=== PATIENT | female | born 1965 | race Caucasian/White ===

== ENCOUNTER 2018-09-12 14:29 | Inpatient (IN) | payer OTHER ==
[~2018-09-12] VITALS: Ht 152.4 cm; Wt 98.0 kg
[2018-09-12 14:40] VITALS: BP 165/81
--- NOTE | 2018-09-12 14:40 | NUR ---
PATIENT AMBULATED TO ER BED 2.
[2018-09-12] MEDS ORDERED: ACETAMINOPHEN EXTRA STRENGTH 500 MG TAB PO ONE (14:45)
--- NOTE | 2018-09-12 14:45 | NUR ---
53 Y FEMALE BIB FAMILY C/O VOMITING X1 DAY YESTERDAY. REPORTS WEAKNESS AND UNABLE TO EAT. STATES SHE HAS NOT TAKEN HER DIABETES MEDICATIONS IN THE PAST 2 DAYS. TEMP 109 ORALLY. TACHY AT 109. AA0X4. NEURO INTACT. PATIENT STATES SHE DID NOT SUFFER ANY DEFICITS FROM PREVIOUS STROKE. BOWEL SOUNDS ACTIVE IN ALL 4 QUADRANTS. ABDOMEN SOFT AND ROUND. BED IS DOWN, LOCKED, BED RAIL X 1, ERMD TO SEE PT. PMH---DM (ACCU CHECK 497), STROKE 1 YEAR AGO, HTN NKA
[2018-09-12] MEDS ORDERED: BIOT10002 PO (14:55)
[2018-09-12] MEDS ORDERED: FURO-570 PO (14:55)
[2018-09-12] MEDS ORDERED: METO25TA PO (14:55)
[2018-09-12] MEDS ORDERED: MULT15LI1 PO (14:55)
[2018-09-12] MEDS ORDERED: LISI-420 PO (14:55)
[2018-09-12] MEDS ORDERED: ASPI-1718 PO (14:55)
[2018-09-12] MEDS ORDERED: AMLO10TA PO (14:55)
[2018-09-12] MEDS ORDERED: CLON0.2T43 PO (14:55)
[2018-09-12] MEDS ORDERED: LIP80 PO (14:55)
--- NOTE | 2018-09-12 15:00 | NUR ---
DR FLEMING AT BEDSIDE
[2018-09-12] MEDS ORDERED: NACL 0.9% 1,000 ML IV ONE ×3 (15:04→16:00)
[2018-09-12] MEDS ORDERED: KETOROLAC 30 MG/ML VIAL IVP ONE (15:05)
[2018-09-12] MEDS ORDERED: ONDANSETRON 4 MG/2 ML VIAL IVP ONE (15:05)
--- NOTE | 2018-09-12 15:14 | NUR ---
REY EMT AT BEDSIDE FOR EKG
[2018-09-12 15:21] LABS: HEMATOCRIT 31.9 % (36-48); HEMOGLOBIN 10.8 g/dL (12.0-16.0); MEAN CORPUSCULAR HEMOGLOBIN 28 pg (27-31); MEAN CORPUSCULAR HGB CONC 34 g/dL (33-37); MEAN CORPUSCULAR VOLUME 82.5 fL (80-94); PLATELET COUNT (AUTO) 239 K/uL (140-450); RED BLOOD CELL COUNT(AUTO) 3.86 MIL/uL (4.20-5.40); RED CELL DISTRIBUTION WIDTH 12.3 % (11.6-13.7)
[2018-09-12 15:35] LABS: LYMPHOCYTES % (MANUAL) 5 % (20-46); MONOCYTES % (MANUAL) 4 % (5-12); WHITE BLOOD COUNT (AUTO) 25.6 K/uL (4.8-10.8)
[2018-09-12] MEDS ORDERED: PIPERACILLIN/TAZOBACTAM 3.375 GM in DEXTROSE 5% 50 ML IV ONE (15:40)
[2018-09-12 15:44] LABS: ALBUMIN 2.2 g/dL (3.4-5.0); ANION GAP 15.3 (8-16); CREATININE 1.6 mg/dL (0.6-1.3); POTASSIUM 3.3 mmol/L (3.5-5.1); TOTAL BILIRUBIN 0.7 mg/dL (0.0-1.0)
[2018-09-12 15:48] LABS: PROTHROMBIN TIME 10.5 secs (10.8-13.4)
[2018-09-12] MEDS ORDERED: PIPERACILLIN/TAZOBACTAM 3.375 GM VIAL IV ONE (15:56)
[2018-09-12 16:13] LABS: APPEARANCE,URINE HAZY (CLEAR); BILIRUBIN,URINE NEGATIVE (NEGATIVE); BLOOD, URINE 2+ (NEGATIVE); COLOR,URINE YELLOW (YELLOW); LEUKOCYTE ESTERASE ,URINE NEGATIVE (NEGATIVE); NITRITE, URINE NEGATIVE (NEGATIVE); UGLUCOSE 3+ (NEGATIVE)
--- NOTE | 2018-09-12 16:21 | NUR ---
VSS AT THIS TIME. PT AA0X4.
[2018-09-12 16:23] LABS: RBC,URINE 11-20 (MOD) /HPF (0-5); WBC,URINE 60-80 /HPF (0-5)
--- NOTE | 2018-09-12 17:00 | NUR ---
PENDING ADMIT AT THIS TIME
[2018-09-12] MEDS ORDERED: INSULIN REGULAR, HUMAN 100 UNIT/ML VIAL IVP ONE (17:15)
--- NOTE | 2018-09-12 17:39 | NUR ---
VSS AT THIS TIME. COMPLETED BY REY WHEATLEY
--- NOTE | 2018-09-12 17:50 | NUR ---
PT EATING DINNER UPRIGHT IN BED. TOLERATING FOOD AT THIS TIME
--- NOTE | 2018-09-12 18:55 | NUR ---
ACCU CHECK 332
--- NOTE | 2018-09-12 19:18 | NUR ---
Patient will be admitted to care of [place]. Admited to TELE. Will go to room 125A. Belongings list completed. Report to JUNE RONALDO.
--- NOTE | 2018-09-12 19:18 | NUR ---
RECIEVED PT FROM ER NURSE. PT AWAKE, ALERT AND ORIENTED X 4. ABLE TO VERBALIZE NEEDS. PT ON ROOM AIR, BREATHING EQUAL AND UNLABORED. PT AMBULATED FROM GURNEY TO BED. PT LEFT AC 20 G INTACT. NO C/O DISCOMFORT. FAMILY AT BEDSIDE. SAFETY MEASURES IN PLACE. PT ORIENTED TO CALL LIGHT. CALL LIGHT WITHIN REACH.
[2018-09-12 20:00] VITALS: BP 146/65
[2018-09-12] MEDS ORDERED: ONDANSETRON 4 MG/2 ML VIAL IVP PRN (21:05)
[2018-09-12 21:55] LABS: ANION GAP 14.4 (8-16); CARBON DIOXIDE 25.3 mmol/L (21-32); CREATININE 1.8 mg/dL (0.6-1.3); POTASSIUM 3.7 mmol/L (3.5-5.1)
[2018-09-12] MEDS: ACETAMINOPHEN 325 MG TAB PO PRN (22:05)
[2018-09-12] MEDS: NACL 0.45% 1,000 ML IV SCH (22:05)
--- NOTE | 2018-09-12 22:05 | NUR ---
TYLENOL GIVEN FOR 3/10 HEADACHE.
[2018-09-13] MEDS ORDERED: PIPERACILLIN/TAZOBACTAM 2.25 GM VIAL IV ONE ×2 (00:08→05:37)
[2018-09-13 00:09] VITALS: BP_SYST 140; BP_SYST 141; BP_DIAS 62; BP_DIAS 71
[2018-09-13] MEDS: PIPER/TAZO 2.25GM/D5W PREMIX 50 ML IV SCH ×5 (00:09→23:26)
--- NOTE | 2018-09-13 00:09 | NUR ---
TEMPERATURE 100.3 AT THIS TIME. PT GIVEN ICE PACK COOLING MEASURE AND REMOVAL OF BLANKET.
[2018-09-13] MEDS: INSULIN LISPRO SLIDING SCALE 100 UNITS/ML VIAL SUBQ PRN ×5 (00:24→20:29)
--- NOTE | 2018-09-13 00:24 | NUR ---
PT ASKED FOR BLOOD GLUCOSE TO BE TAKEN. BLOOD GLUCOSE LEVEL 347, ADMINISTERED INSULIN PER SLIDING SCALE AT THIS TIME.
--- NOTE | 2018-09-13 02:00 | NUR ---
ROUNDED ON PT. PT SLEEPING, BREATHING EQUAL AND UNLABORED. CALL LIGHT WITHIN REACH.
[2018-09-13 04:40] VITALS: BP 185/76
[2018-09-13] MEDS: ACETAMINOPHEN 325 MG TAB PO PRN ×2 (04:45→15:58)
--- NOTE | 2018-09-13 04:45 | NUR ---
GAVE TYLENOL FOR FEVER OF 102. APPLIED ICE PACKS. WILL REASSESS IN ONE HOUR.
--- NOTE | 2018-09-13 04:54 | NUR ---
CALLED DOCTOR BUSINESS BANKING MANAGER FOR PT BP 185/76 AND PULSE 121. ORDERS TO CONTINUE AT HOME BP MEDICATIONS.
[2018-09-13] MEDS ORDERED: amLODIPine 5 MG TAB PO STA (05:18)
--- NOTE | 2018-09-13 05:45 | NUR ---
TEMPERATURE REASSESSMENT 102.7 AT THIS TIME. APPLIED NEW ICE PACKS TO ARMPITS. PULLED BLANKETS OFF PT.
[2018-09-13] MEDS: BLOOD GLUCOSE MONITORING 1 DEV DEV FS SCH ×4 (06:27→20:49)
--- NOTE | 2018-09-13 07:10 | NUR ---
ENDORSED TO AM NURSE FOR CONTINUITY OF CARE. PT IN STABLE CONDITION.
--- NOTE | 2018-09-13 07:11 | NUR ---
RECEIVED BEDSIDE REPORT FROM NIGHT NURSE. PT IS AOX4 RESTING IN BED BREATHING UNLABORED WITH NO DISTRESS OR COMPLAINTS. PT HAS +1 BLLE AROUND ANKLES INFORMED BY PT AND NIGHT NURSE THIS HAS PERSISTED SINCE ADMISSION AND IS TYPICAL FOR PATIENT. ALL SAFETY MEASURES IN PLACE AND CALL LIGHT WITHIN REACH. PT HAS A RIGHT HAND IV THAT IS INFUSING 1/2 NS AT 75 ML/HR ASYMPTOMATIC AND PATENT.
[2018-09-13 08:00] VITALS: BP 125/54
[2018-09-13] MEDS: METOPROLOL 25 MG TAB PO SCH ×2 (08:20→20:25)
[2018-09-13] MEDS: PANTOPRAZOLE 40 MG INJ VIAL IVP SCH (08:21)
[2018-09-13] MEDS: amLODIPine 5 MG TAB PO SCH (08:21)
--- NOTE | 2018-09-13 08:25 | NUR ---
ADMINISTERED MEDICATIONS, PT HAS NO DISTRESS RESTING IN BED BREATHING UNLABORED.
--- NOTE | 2018-09-13 08:58 | NUR ---
PATIENT HAS BEEN SCREENED AND CATEGORIZED MODERATE NUTRITION RISK. PATIENT WILL BE SEEN WITHIN 3-5 DAYS OF ADMISSION. 09/15/18-09/17/[address]
[2018-09-13] MEDS ORDERED: cloNIDine 0.1 MG TAB PO SCH (09:00)
[2018-09-13] MEDS: NACL 0.45% 1,000 ML IV SCH ×2 (10:01→23:25)
--- NOTE | 2018-09-13 10:01 | NUR ---
REASSESSED BLOOD PRESSURE AND FOUND TO BE 92/50, NOTIFIED DR MARTINES WHO WAS WALKING BY PT ROOM AT THE TIME AND HE INFORMED ME TO NOT DO ANYTHING ABOUT IT AND THAT WAS A NORMAL BLOOD PRESSURE. PT HAS NO DISTRESS OR REQUESTS AT THIS TIME.
--- NOTE | 2018-09-13 10:55 | NUR ---
WAS NOTIFIED BY LAB OF [facility] NEGATIVE RODS IN BLOOD CULTURE 1054, NOTIFIED DR MARTINES AT 1055 NO FURTHER ORDERS
--- NOTE | 2018-09-13 11:29 | NUR ---
ADMINISTERED MEDICATION PER MD ORDER AND INSULIN SLIDING SCALE, PT SLEEPING IN BED AROUSABLE TO NAME AND JUST STATING SHE FEELS FINE BUT IS TIRED. NO DISTRESS.
[2018-09-13 12:00] VITALS: BP 116/61
--- NOTE | 2018-09-13 13:13 | NUR ---
PT SLEEPING IN BED BREATHING UNLABORED.
--- NOTE | 2018-09-13 14:00 | NUR ---
PT SLEEPING IN BED BREATHING UNLABORED.
--- NOTE | 2018-09-13 14:20 | NUR ---
PT HAS TWO FEMALE VISITORS AT BEDSIDE SITTING UP TALKING WITH NO DISTRESSED BREATHING OR REPORTED PAIN. PT AND VISITORS DENY ANY REQUESTS FOR ANYTHING.
[2018-09-13 16:00] VITALS: BP 143/95
--- NOTE | 2018-09-13 16:04 | NUR ---
ADMINISTERED TYLENOL PER PT REQUEST FOR HEADACHE AND BROUGHT HER ICE WATER PER HER REQUEST. PT HAS NO OTHER REQUESTS AND IS RESTING BREATHING UNLABORED WITH NO OTHER SIGNS OF DISTRESS.
--- NOTE | 2018-09-13 17:09 | NUR ---
ADMINISTERED 4 UNITS HUMALOG FOR GLUCOSE OF 234. PATIENT TOLERATED WELL. ASSISTED PATIENT TO BATHROOM, RETURNED PATIENT TO BED. NO SIGNS OF DISTRESS OR SOB ON RA.
--- NOTE | 2018-09-13 17:20 | NUR ---
contacted pharmacy and informed them that the bag of zosyn administered at 1200 is the bag labeled for 0000 and that the 1200 bag is still in the fridge in its place.
--- NOTE | 2018-09-13 17:25 | NUR ---
administered medication per order. pt without distress.
--- NOTE | 2018-09-13 18:15 | NUR ---
REQUESTED TOMATO SOUP AT [facility] PER PT REQUEST. PT HAS NO OTHER REQUESTS AND IS RESTING IN BED BREATHING UNLABORED DENYING PAIN
--- NOTE | 2018-09-13 19:05 | NUR ---
Received endorsement from AM shift RN; patient A/Ox4, able to make needs known, Luxembourgish speaking, ambulatory. Introduced self, updated board. No SOB or distress noted, on room air. IV site on right hand, 20 gauge, intact with IVF running at 75mL/hr. Skin intact. Bed in the lowest position, call light within reach. Initial assessment done. Will continue to monitor. Addendum: 09/14/18 at 0014 by Mirza De La Rosa RN Bilateral lower extremity edema also noted.
[2018-09-13 20:00] VITALS: BP 123/53
--- NOTE | 2018-09-13 20:45 | NUR ---
Vitals taken, due meds given, tolerated well.
--- NOTE | 2018-09-13 22:30 | NUR ---
Rounds done; no distress noted.
[2018-09-13] MEDS ORDERED: DOCUSATE SODIUM 100 MG GELCAP PO PRN (23:15)
[2018-09-14] VITALS: BP 122/57
--- NOTE | 2018-09-14 00:11 | NUR ---
Vitals taken; no distress noted. Patient sleeping on right lateral side, visible chest rise and fall noted. Addendum: 09/14/18 at 0031 by Mirza De La Rosa RN Patient noted with 102 degree oral temperature; administered PRN Tylenol for fever. Will monitor closely.
[2018-09-14] MEDS: ACETAMINOPHEN 325 MG TAB PO PRN ×2 (00:32→20:45)
--- NOTE | 2018-09-14 00:40 | NUR ---
Ice pack applied to forehead to reduce fever. Will continue to monitor.
--- NOTE | 2018-09-14 01:30 | NUR ---
Re-checked temperature; oral temp at 101.50 degrees. Additional cooling measure put in place; turned on AC, removed blankets, placed additional ice packs and administered tepid sponge bath. Will continue to monitor. Addendum: 09/14/18 at 0138 by Mirza De La Rosa RN Advised patient to increase oral fluid intake.
--- NOTE | 2018-09-14 02:11 | NUR ---
Re-checked temperature; oral temperature 98.1; cooling measures effective. Will continue to monitor.
--- NOTE | 2018-09-14 03:00 | NUR ---
Checks made; no distress noted.
[2018-09-14 04:00] VITALS: BP 145/66
--- NOTE | 2018-09-14 04:15 | NUR ---
Vitals taken, no distress noted. Oral temperature 98.3.
[2018-09-14] MEDS: PIPER/TAZO 2.25GM/D5W PREMIX 50 ML IV SCH ×4 (05:14→23:28)
[2018-09-14] MEDS: BLOOD GLUCOSE MONITORING 1 DEV DEV FS SCH ×4 (06:07→21:00)
[2018-09-14 06:44] LABS: ALBUMIN 1.6 g/dL (3.4-5.0); ANION GAP 13.9 (8-16); CREATININE 2.2 mg/dL (0.6-1.3); TOTAL BILIRUBIN 0.7 mg/dL (0.0-1.0)
[2018-09-14 06:47] LABS: BASOPHILS % (AUTO) 0.2 % (0.0-2.0); EOSINOPHILS # (AUTO) 0.1 K/uL (0-0.4); EOSINOPHILS % (AUTO) 0.5 % (0.0-4.0); HEMATOCRIT 25.2 % (36-48); HEMOGLOBIN 8.4 g/dL (12.0-16.0); LYMPHOCYTES # (AUTO) 1.6 K/uL (2.5-16.5); LYMPHOCYTES % (AUTO) 11.7 % (20.5-51.1); MEAN CORPUSCULAR HEMOGLOBIN 28 pg (27-31); MEAN CORPUSCULAR HGB CONC 34 g/dL (33-37); MEAN CORPUSCULAR VOLUME 82.7 fL (80-94); MONOCYTES # (AUTO) 0.8 K/uL (0.8-1.0); MONOCYTES % (AUTO) 5.8 % (1.7-9.3); NEUTROPHILS # (AUTO) 11.2 K/uL (1.8-7.7); NEUTROPHILS % (AUTO) 81.8 % (42.2-75.2); PLATELET COUNT (AUTO) 154 K/uL (140-450); RED BLOOD CELL COUNT(AUTO) 3.04 MIL/uL (4.20-5.40); RED CELL DISTRIBUTION WIDTH 12.4 % (11.6-13.7); WHITE BLOOD COUNT (AUTO) 13.8 K/uL (4.8-10.8)
--- NOTE | 2018-09-14 07:05 | NUR ---
Endorsed patient to AM shift RN for continuity of care; patient in stable condition.
--- NOTE | 2018-09-14 07:10 | NUR ---
RECEIVED PT FROM DUCT LAYER NURSE, JACKI, PT IS AWAKE AND LYING ON THE BED WITH IV LINE ON THE RT HAND G. 20 WITH 1/2 NS AT 75ML/HR INFUSING, INTACT, AOX4, RESPIRATION IS EVEN, DENIES PAIN, NO SIGN OF DISTRESS NOTED, AND WILL CONTINUE TO MONITOR PT.
[2018-09-14 07:27] LABS: POTASSIUM 2.9 mmol/L (3.5-5.1)
--- NOTE | 2018-09-14 07:27 | NUR ---
RECEIVED A CALL FROM KENDY OF LAB AND REPORTED K IS 2.9, BUN IS 34, CREATININE IS 2.2.
--- NOTE | 2018-09-14 07:30 | NUR ---
PAGED DR. MARTINES NOW.
--- NOTE | 2018-09-14 08:20 | NUR ---
SPOKE TO DR. MARTIN, AND REPORTED THE PT'S K LEVEL OF 1.9, BUN 34, CREATININE 2.2 AND MD MADE A TELEPHONE ORDER TO GIVE NS 20MEQ KCL, 40 MEQ ORAL POTASSIUM, INSERT CASTELLON CATHETER AND RENAL U/S BILATERAL, ORDERS READ BACK AND VERIFIED.
--- NOTE | 2018-09-14 08:25 | NUR ---
INFORMED PT THAT MD ORDERED FOR A CASTELLON CATHETER INSERTION AND PT REFUSED AND VERBALIZED THAT SHE WANTS TO GO TO THE BATHROOM AND WALK AND BE ABLE TO PEE, A URINAL HAT WAS PLACED IN THE TOILET BOWL TO MEASURE URINE OUTPUT.
[2018-09-14] MEDS ORDERED: POTASSIUM CHLORIDE 10 MEQ TABER PO SCH (09:00)
[2018-09-14] MEDS: amLODIPine 5 MG TAB PO SCH (09:08)
[2018-09-14] MEDS: METOPROLOL 25 MG TAB PO SCH ×2 (09:08→20:46)
[2018-09-14] MEDS: PANTOPRAZOLE 40 MG INJ VIAL IVP SCH (09:10)
[2018-09-14] MEDS: POTASSIUM CHL 20 MEQ/NACL 0.9% 1,000 ML IV SCH ×2 (09:18→16:57)
--- NOTE | 2018-09-14 10:23 | NUR ---
PATIENT HAS BEEN RE-SCREENED AND RE-CATEGORIZED HIGH NUTRITIONAL RISK. PT WILL BE SEEN WITHIN 1-2 DAYS FROM ADMISSION 09/14/[address]
[2018-09-14 12:00] VITALS: BP 131/60
[2018-09-14] MEDS: INSULIN LISPRO SLIDING SCALE 100 UNITS/ML VIAL SUBQ PRN ×3 (12:49→21:04)
[2018-09-14] MEDS ORDERED: DOCUSATE SODIUM 100 MG GELCAP PO PRN (12:52)
--- NOTE | 2018-09-14 13:34 | NUR ---
09/14/18 RD INITIAL ASSESSMENT COMPLETED PLEASE REFER TO NUTRITION ASSESSMENT UNDER CARE ACTIVITY FOR ESTIMATED NUTRITIONAL NEEDS. 1. RECOMMEND CCHO 60 GM BLAND DIET TOLERATED 2. ENCOURAGE INCREASING PO INTAKE 3. RECOMMEND ENSURE ENLIVE BID 4. RD PROVIDED HEART-HEALTHY CONSISTENT CARBOHYDRATE NUTRITION THERAPY 5. RD TO FOLLOW-UP 2-3 DAYS, HIGH RISK AYLNI OCHOA RD
[2018-09-14 16:00] VITALS: BP 153/72
--- NOTE | 2018-09-14 17:10 | NUR ---
PT WAS ASSISTED TO THE BATHROOM TO URINATE AND DRAINED 400ML.
--- NOTE | 2018-09-14 17:10 | NUR ---
PT WAS GIVEN IV ZOSYN NOW VIA PIGGYBACK.
--- NOTE | 2018-09-14 19:25 | NUR ---
ENDORSED PT TO RN SURGERY ICU NURSE FOR CONTINUITY OF CARE.
--- NOTE | 2018-09-14 19:26 | NUR ---
RECEIVED BEDSIDE REPORT BY CRIS BRIGHT. PT A/O X4. TO PERSON PLACE TIME AND EVENT. DISCUSSED PLAN OF CARE. VERBALIZED UNDERSTANDING. ABLE TO MAKE NEEDS KNOWN. NO SIGNS OF RESP DISTRESS. ROOM AIR. STANDARD PRECAUTIONS. AMBULATES WITH ASSIST. RIGHT SIDED WEAKNESS. BILATERAL LOWER LEG EDEMA +1. SKIN IS INTACT. RIGHT HAND 20G PATENT AND INTACT. BED IN LOWEST POSITION. CALL LIGHT WITHIN REACH. WILL CONTINUE TO MONITOR.
[2018-09-14 20:00] VITALS: BP 162/58
--- NOTE | 2018-09-14 20:00 | NUR ---
Received pt from emily rn pt is aaox4 ambulatory iv on rt hand infusing well on telemetry sr not distress noted initial assessment done
--- NOTE | 2018-09-14 21:30 | NUR ---
AFTER TYLENOL GIVEN FOR FEVER PT HAS N TEMP 98 AND PT V;OIDING WELL ON TELEMETRY SR
--- NOTE | 2018-09-14 22:00 | NUR ---
PT IS ASSISTED TO USE THE RESTROOM NOT DISTRESS NOTED, REMAIN STABLE ON TELEMETRY SR
[2018-09-15] VITALS: BP 148/69
--- NOTE | 2018-09-15 01:00 | NUR ---
PT ON CLOSE MONITORING STRICT I AND O DENIES ANY PAIN IV ON RT HAND INFUSING WELL
[2018-09-15] MEDS: POTASSIUM CHL 20 MEQ/NACL 0.9% 1,000 ML IV SCH ×3 (02:45→10:44)
[2018-09-15 04:00] VITALS: BP 114/78
--- NOTE | 2018-09-15 04:00 | NUR ---
SPONGE BATH GIVEN, LINEN CHANGED PT VOIDING WELL , ON TELEMETRY SR
[2018-09-15] MEDS: ACETAMINOPHEN 325 MG TAB PO PRN (04:21)
[2018-09-15] MEDS: PIPER/TAZO 2.25GM/D5W PREMIX 50 ML IV SCH ×2 (05:55→14:05)
--- NOTE | 2018-09-15 06:00 | NUR ---
BLOOD SUGAR TEST 245 COVERAGE WITH 4 UNITS HUMALOG SUBQ FOLLOW PROTOCOL
[2018-09-15] MEDS: BLOOD GLUCOSE MONITORING 1 DEV DEV FS SCH ×2 (06:03→11:48)
[2018-09-15] MEDS: INSULIN LISPRO SLIDING SCALE 100 UNITS/ML VIAL SUBQ PRN ×2 (06:07→12:19)
[2018-09-15 06:24] LABS: ALBUMIN 1.5 g/dL (3.4-5.0); ANION GAP 15.8 (8-16); CARBON DIOXIDE 20.6 mmol/L (21-32); CREATININE 1.9 mg/dL (0.6-1.3); POTASSIUM 3.4 mmol/L (3.5-5.1); TOTAL BILIRUBIN 0.7 mg/dL (0.0-1.0)
[2018-09-15 06:25] LABS: MAGNESIUM 1.5 mg/dL (1.8-2.4); PHOSPHORUS 2.6 mg/dL (2.5-4.9)
--- NOTE | 2018-09-15 06:49 | NUR ---
PT FEELS NAUSEAS AND MEDIC GIVEN ORDER PT WILL BE MONITORING, AND PT WILL BE ENDORSED TO DAY SHIFT NURSE FOR CONTINUE OF CARE
--- NOTE | 2018-09-15 07:20 | NUR ---
RECEIVED PT FROM DEPARTMENT DIRECTOR NURSEMARÍA, PT IS AWAKE AND LYING ON THE BED WITH IV LINE ON THE RT HAND G. 20 WITH NA 20MEQ KCL INFUSING AT 150 ML/HR, ON ROOM AIR, FALL PRECAUTION ENFORCED, DENIES PAIN AND NO SIGN OF DISTRESS NOTED. WILL MONITOR PT.
--- NOTE | 2018-09-15 07:49 | NUR ---
RECEIVED REPORT FROM EDITORIAL WRITER NURSE. PT IS STABLE THIS MORNING. PT IS CURRENTLY EATING BREAKFAST IN BED. VITAL SIGNS WERE STABLE, NO SIGNS OF RESPIRATORY DISTRESS. WILL CONTINUE TO MONITOR.
--- NOTE | 2018-09-15 07:52 | NUR ---
SPOKE TO DR. MARTIN, COVERING FOR DR. MARTINES, AND REPORTED THE PT'S K LEVEL OF 3.4, SAID TO NOT GIVE ANYTHING BECAUSE ITS NOT TOO LOW, PT RECEIVED 40MEQ K-DUR AND HAS NS 20MEQ KCL INFUSING NOW.
[2018-09-15 07:56] VITALS: BP 146/79
[2018-09-15] MEDS: METOPROLOL 25 MG TAB PO SCH (08:13)
[2018-09-15] MEDS: amLODIPine 5 MG TAB PO SCH (08:13)
[2018-09-15] MEDS: PANTOPRAZOLE 40 MG INJ VIAL IVP SCH (08:14)
[2018-09-15 08:28] LABS: BASOPHILS % (AUTO) 0.4 % (0.0-2.0); EOSINOPHILS % (AUTO) 0.4 % (0.0-4.0); HEMATOCRIT 24.2 % (36-48); HEMOGLOBIN 8.2 g/dL (12.0-16.0); LYMPHOCYTES # (AUTO) 1.1 K/uL (2.5-16.5); LYMPHOCYTES % (AUTO) 10.1 % (20.5-51.1); MEAN CORPUSCULAR HEMOGLOBIN 28 pg (27-31); MEAN CORPUSCULAR HGB CONC 34 g/dL (33-37); MEAN CORPUSCULAR VOLUME 82.6 fL (80-94); MONOCYTES % (AUTO) 9.3 % (1.7-9.3); NEUTROPHILS % (AUTO) 79.8 % (42.2-75.2); PLATELET COUNT (AUTO) 165 K/uL (140-450); RED BLOOD CELL COUNT(AUTO) 2.92 MIL/uL (4.20-5.40); RED CELL DISTRIBUTION WIDTH 12.5 % (11.6-13.7); WHITE BLOOD COUNT (AUTO) 11.3 K/uL (4.8-10.8)
--- NOTE | 2018-09-15 10:44 | NUR ---
ASSISTED PT TO THE BATHROOM AND ASSISTED BACK TO ROOM, IVF BAG WAS CHANGED AND STARTED A NEW ONE. WILL MONITOR PT.
--- NOTE | 2018-09-15 11:48 | NUR ---
PT IS LYING ON THE BED, V/S TAKEN AND BP IS 139/69, PULSE IS 78, O2 SATURATION IS 96%, TEMP. IS 98.1, RESPIRATION IS EVEN AT 18/MIN, BLOOD GLUCOSE CHECK DONE AND IS 240. WILL GIVE INSULIN COVERAGE.
[2018-09-15 12:00] VITALS: BP 139/69
--- NOTE | 2018-09-15 12:15 | NUR ---
DR. MARTIN CAME TO PT'S ROOM AND SPOKE TO PT, MADE A VERBAL ORDER TO GIVE PT MG 400MG ORAL X 1 DOSE.. ORDER VERIFIED AND WILL CARRY OUT.
--- NOTE | 2018-09-15 12:19 | NUR ---
PT WAS GIVEN INSULIN 4 UNITS, IHN THE LEFT UA FOR A BLOOD GLUCOSE OF 240. WILL MONITOR PT.
[2018-09-15] MEDS ORDERED: MAGNESIUM OXIDE 400 MG TAB PO SCH (13:00)
[2018-09-15] MEDS ORDERED: MAGNESIUM CHLORIDE 64 MG TABEC PO SCH (13:30)
[2018-09-15] MEDS ORDERED: POTASSIUM CHLORIDE 10 MEQ TABER PO SCH (13:30)
--- NOTE | 2018-09-15 13:34 | NUR ---
CALLED PATIENT'S PCP OFFICE [phone] MADE F/U APPOINTMENT WITH DR REYES SEPTEMBER 29, 2018 AT 3:30 PM. EXPLAIN TO THE PATIENT AND APPOINTMENT REMINDER GIVEN. PT VERBALIZED UNDERSTANDING.
--- NOTE | 2018-09-15 13:50 | NUR ---
PT IS AWAKE AND LYING ON THE BED, ORAL MEDICATIONS WERE GIVEN AND PT TOLERATED IT.
--- NOTE | 2018-09-15 14:06 | NUR ---
IV ZOSYN GIVEN TO PT NOW.
--- NOTE | 2018-09-15 16:18 | NUR ---
PT WAS DISCHARGED AT APPROXIMATELY 1615. PT WAS STABLE UPON DISCHARGE AND VITAL SIGNS WERE ALL WNL. PT HAD DAUGHTER DRIVE HER HOME.
--- NOTE | 2018-09-15 16:18 | NUR ---
DISCHARGED PT TO HOME VIA WHEELCHAIR WITH DAUGHTER, IV LINE AND ARM BAND REMOVED, DISCHARGED TEACHING AND INSTRUCTIONS GIVEN AND PT VERBALIZED UNDERSTANDING. PT IS STABLE AT THIS TIME.
== END 2018-09-15 16:10 | disposition home or self-care (01) | DRG 720 ==
LOC: MED 14:29 → MMU 19:04 → MED 19:10
PROVIDERS: ADMIT Internal Medicine Pulmonary Disease; ATTEND Internal Medicine Pulmonary Disease
DX: A41.9 Sepsis, unspecified organism (principal); E43 Unspecified severe protein-calorie malnutrition; E11.22 Type 2 diabetes mellitus with diabetic chronic kidney disease; N17.9 Acute kidney failure, unspecified; A08.4 Viral intestinal infection, unspecified; N39.0 Urinary tract infection, site not specified; E66.01 Morbid (severe) obesity due to excess calories; Z68.41 Body mass index [BMI] 40.0-44.9, adult; B96.20 Unspecified Escherichia coli [E. coli] as the cause of diseases classified elsewhere; D64.9 Anemia, unspecified; E66.9 Obesity, unspecified; E78.5 Hyperlipidemia, unspecified; E87.1 Hypo-osmolality and hyponatremia; E87.6 Hypokalemia; E88.09 Other disorders of plasma-protein metabolism, not elsewhere classified; I12.9 Hypertensive chronic kidney disease with stage 1 through stage 4 chronic kidney disease, or unspecified chronic kidney disease; N18.3 Chronic kidney disease, stage 3 (moderate); Z86.73 Personal history of transient ischemic attack (TIA), and cerebral infarction without residual deficits; Z90.710 Acquired absence of both cervix and uterus
CPT/HCPCS: 36415; 71045; 76770; 80048; 80053; 81001; 82948; 83605; 83690; 83735; 84100; 84484; 85025; 85610; 87040; 87081; 87086; 87186; 93005; 96361; 96365; 96375; 99291; C9113; J1815; J1885; J2405; J2543; J7030; J7060; Q0092

== ENCOUNTER 2018-09-26 05:49 | Emergency (ER) | payer OTHER ==
[~2018-09-26] VITALS: Ht 152.4 cm; Wt 83.9 kg
[~2018-09-26 05:49] MED LIST: AMLO10TA PO; ASPI-1718 PO; BIOT10002 PO; CLON0.2T43 PO; FURO-570 PO; LIP80 PO; LISI-420 PO; METO25TA PO; MULT15LI1 PO
[2018-09-26 05:50] VITALS: BP 141/84
--- NOTE | 2018-09-26 05:57 | NUR ---
PT AMBULATED TO ER BED 8
--- NOTE | 2018-09-26 06:00 | NUR ---
PT BIB DAUGHTER PRESENTED TO ED, C/O EPIGASTRIC/UPPER ABD BURNING PAIN 8/10 WITH N/V FOR 4HRS. TOOK ZOFRAN WITH LITTLE RELIEF BUT FELT NAUSEATED AFTER 2HRS. PT WAS RECENTLY ADMITTED 1 WEEKS AGO FOR PYELONEPHRITIS AND RECEIVED ATB THERAPY AND FINISHED DURATION OF ATB AT HOME. C/O PAIN UPON PALPATION ON THE EPIGASTRIC REGION, ABDOMEN ROUND SOFT TO TOUCH. PT AAOX4, RR EVEN UNLABORED, NO DISTRESS AT THIS TIME. DR. DARDEN AT BEDSIDE ASSESSING PATIENT. WILL CONTINUE TO MONITOR CLOSELY. HX HTN, DM, , HYSTERECTOMY, HERNIA REPAIR
--- NOTE | 2018-09-26 06:00 | NUR ---
DR. DARDEN BEDSIDE EVALUATING PT
[2018-09-26] MEDS ORDERED: FAMOTIDINE 20 MG/2 ML VIAL IVP ONE (06:10)
[2018-09-26] MEDS ORDERED: NACL 0.9% 1,000 ML IV ONE (06:10)
[2018-09-26] MEDS ORDERED: ONDANSETRON 4 MG/2 ML VIAL IVP ONE (06:10)
[2018-09-26] MEDS ORDERED: MORPHINE SULFATE 4 MG/ML SYR IVP ONE (06:10)
[2018-09-26 06:35] LABS: BASOPHILS # (AUTO) 0.1 K/uL (0.00-0.22); BASOPHILS % (AUTO) 0.6 % (0.0-2.0); EOSINOPHILS # (AUTO) 0.1 K/uL (0-0.4); EOSINOPHILS % (AUTO) 0.5 % (0.0-4.0); HEMATOCRIT 25.2 % (36-48); HEMOGLOBIN 8.7 g/dL (12.0-16.0); LYMPHOCYTES # (AUTO) 1.7 K/uL (2.5-16.5); LYMPHOCYTES % (AUTO) 15.1 % (20.5-51.1); MEAN CORPUSCULAR HEMOGLOBIN 28 pg (27-31); MEAN CORPUSCULAR HGB CONC 35 g/dL (33-37); MONOCYTES # (AUTO) 0.6 K/uL (0.8-1.0); MONOCYTES % (AUTO) 4.9 % (1.7-9.3); NEUTROPHILS % (AUTO) 78.9 % (42.2-75.2); PLATELET COUNT (AUTO) 405 K/uL (140-450); RED BLOOD CELL COUNT(AUTO) 3.11 MIL/uL (4.20-5.40); WHITE BLOOD COUNT (AUTO) 11.4 K/uL (4.8-10.8)
[2018-09-26 06:36] LABS: APPEARANCE,URINE CLEAR (CLEAR); BILIRUBIN,URINE NEGATIVE (NEGATIVE); BLOOD, URINE 2+ (NEGATIVE); COLOR,URINE YELLOW (YELLOW); LEUKOCYTE ESTERASE ,URINE NEGATIVE (NEGATIVE); NITRITE, URINE NEGATIVE (NEGATIVE); PH,URINE 7.5 (5.0-9.0); UGLUCOSE 3+ (NEGATIVE)
[2018-09-26 07:02] LABS: ALBUMIN 2.3 g/dL (3.4-5.0); CARBON DIOXIDE 34.3 mmol/L (21-32); CREATININE 1.7 mg/dL (0.6-1.3); POTASSIUM 3.3 mmol/L (3.5-5.1)
--- NOTE | 2018-09-26 07:08 | NUR ---
REPORT GIVEN TO RONALDO BOWIE. PT IN STABLE CONDITION AT THIS TIME.
[2018-09-26 08:07] LABS: RBC,URINE 11-20 (MOD) /HPF (0-5); WBC,URINE 0-5 /HPF (0-5)
--- NOTE | 2018-09-26 08:54 | NUR ---
PATIENT TAKEN FOR CT SCAN VIA WHEELCHAIR AT THIS TIME.
--- NOTE | 2018-09-26 09:05 | NUR ---
PT RETURNED FROM CT SCAN VIA WHEELCHAIR.
--- NOTE | 2018-09-26 09:11 | NUR ---
ASSUMED CARE OF PT AT THIS TIME, PT AWAKE AND LAYING IN BED, COMFORTABLE, NO NEW NEEDS AT THIS TIME.
--- NOTE | 2018-09-26 10:54 | NUR ---
Patient discharged with v/s stable. Written and verbal after care instructions given and explained. Patient alert, oriented and verbalized understanding of instructions. Ambulatory with steady gait. All questions addressed prior to discharge. ID band removed. Patient advised to follow up with PMD. Rx of [place] given. Patient educated on indication of medication including possible reaction and side effects. Opportunity to ask questions provided and answered.
[2018-09-26 11:01] VITALS: BP 196/85
== END 2018-09-26 10:54 | disposition home or self-care (01) ==
LOC: MED 05:49
DX: R10.10 Upper abdominal pain, unspecified (principal); R11.2 Nausea with vomiting, unspecified; E11.9 Type 2 diabetes mellitus without complications; I10 Essential (primary) hypertension; Z86.73 Personal history of transient ischemic attack (TIA), and cerebral infarction without residual deficits; Z90.710 Acquired absence of both cervix and uterus; Z98.890 Other specified postprocedural states; Z79.82 Long term (current) use of aspirin
CPT/HCPCS: 36415; 74176; 76705; 80053; 81001; 82948; 83690; 85025; 87040; 96361; 96374; 96375; 99284; J2270; J2405; J3490; J7030; Q0092

== ENCOUNTER 2019-04-27 11:32 | Emergency (ER) | payer OTHER ==
[~2019-04-27] VITALS: Ht 152.4 cm; Wt 83.5 kg
[~2019-04-27 11:32] MED LIST changes: -ASPI-1718 PO; +ASPI-1822 PO
[2019-04-27 11:57] VITALS: BP 228/92
--- NOTE | 2019-04-27 12:15 | NUR ---
RECEVIED A 54/F FROM TRIAGE FOR UTI S/S. PT REPORTS GROSS HEMATURIA STARTING THIS MORNING WITH URINARY URGENCY AND FREQUENCY. PT DENIES PAIN OR ANY OTHER SYMPTOMS. IN BED FOR MSE.
--- NOTE | 2019-04-27 12:55 | NUR ---
MEDICATED ORDERED. TOLERATED WELL.
[2019-04-27] MEDS ORDERED: cefTRIAXone 1,000 MG VIAL ONE (12:56)
[2019-04-27 12:58] LABS: APPEARANCE,URINE CLOUDY (CLEAR); BILIRUBIN,URINE NEGATIVE (NEGATIVE); BLOOD, URINE 3+ (NEGATIVE); COLOR,URINE RED (YELLOW); LEUKOCYTE ESTERASE ,URINE 2+ (NEGATIVE); NITRITE, URINE POSITIVE (NEGATIVE); PH,URINE 7.5 (5.0-9.0); UGLUCOSE 3+ (NEGATIVE)
[2019-04-27] MEDS: ONDANSETRON 4 MG/2 ML VIAL IVP ONE (12:58)
[2019-04-27] MEDS: NACL 0.9% 1,000 ML IV SCH (12:58)
[2019-04-27] MEDS: KETOROLAC 15 MG/ML VIAL IVP ONE (12:58)
--- NOTE | 2019-04-27 13:05 | NUR ---
PT REPORTS NO PAIN AFTER MEDICATIONA ADMIN.
[2019-04-27 13:15] LABS: RBC,URINE TOO NUMEROUS TO COUN /HPF (0-5)
[2019-04-27 13:40] LABS: BASOPHILS % (AUTO) 0.3 % (0.0-2.0); EOSINOPHILS % (AUTO) 0.3 % (0.0-4.0); HEMOGLOBIN 11.5 g/dL (12.0-16.0); LYMPHOCYTES # (AUTO) 1.6 K/uL (2.5-16.5); LYMPHOCYTES % (AUTO) 12.5 % (20.5-51.1); MEAN CORPUSCULAR HEMOGLOBIN 27 pg (27-31); MEAN CORPUSCULAR HGB CONC 34 g/dL (33-37); MEAN CORPUSCULAR VOLUME 81.1 fL (80-94); MONOCYTES # (AUTO) 0.4 K/uL (0.8-1.0); NEUTROPHILS % (AUTO) 83.9 % (42.2-75.2); PLATELET COUNT (AUTO) 310 K/uL (140-450); RED BLOOD CELL COUNT(AUTO) 4.19 MIL/uL (4.20-5.40); RED CELL DISTRIBUTION WIDTH 12.8 % (11.6-13.7); WHITE BLOOD COUNT (AUTO) 13.1 K/uL (4.8-10.8)
[2019-04-27 13:43] LABS: ALBUMIN 2.7 g/dL (3.4-5.0); ANION GAP 11.4 (8-16); CARBON DIOXIDE 31.9 mmol/L (21-32); CREATININE 1.4 mg/dL (0.6-1.3); POTASSIUM 3.3 mmol/L (3.5-5.1); TOTAL BILIRUBIN 0.4 mg/dL (0.0-1.0)
--- NOTE | 2019-04-27 13:55 | NUR ---
DR LAM MADE AWARE OF GLUCOSE OF 404. ORDER FOR 1L NS BOLUS RECEIVED.
[2019-04-27] MEDS: MAGNESIUM OXIDE 400 MG TAB PO ONE (14:19)
[2019-04-27] MEDS: POTASSIUM CHLORIDE 10 MEQ TABER PO ONE (14:19)
[2019-04-27] MEDS: NACL 0.9% 1,000 ML IV ONE (14:19)
[2019-04-27] MEDS ORDERED: INSULIN REGULAR, HUMAN 100 UNIT/ML VIAL SUBQ ONE (15:15)
--- NOTE | 2019-04-27 15:22 | NUR ---
BS 347 AFTER 1L BOLUS- WILL MEDICATE WITH 5U INSULIN PER MD ORDER.
[2019-04-27] MEDS: INSULIN REGULAR, HUMAN 100 UNIT/ML VIAL IVP ONE (15:35)
--- NOTE | 2019-04-27 16:30 | NUR ---
BS 276 AFTER 5U INSULIN. OKAY TO D/C PER DR LAM.
--- NOTE | 2019-04-27 16:38 | NUR ---
IV removed, catheter intact and site benign. Applied folded 4x4 gauze and tape to stop bleeding.
--- NOTE | 2019-04-27 16:40 | NUR ---
Patient discharged with v/s stable. Written and verbal after care instructions given and explained. Patient alert, oriented and verbalized understanding of instructions. Ambulatory with steady gait. All questions addressed prior to discharge. ID band removed. Patient advised to follow up with PMD. Rx of [place], CEPHALEXIN, ZOFRAN given. Patient educated on indication of medication including possible reaction and side effects. Opportunity to ask questions provided and answered.
[2019-04-27 16:42] VITALS: BP 183/74
== END 2019-04-27 16:43 | disposition home or self-care (01) ==
LOC: MED 11:32
DX: N12 Tubulo-interstitial nephritis, not specified as acute or chronic (principal); E11.65 Type 2 diabetes mellitus with hyperglycemia; E11.22 Type 2 diabetes mellitus with diabetic chronic kidney disease; I12.9 Hypertensive chronic kidney disease with stage 1 through stage 4 chronic kidney disease, or unspecified chronic kidney disease; Z86.73 Personal history of transient ischemic attack (TIA), and cerebral infarction without residual deficits; Z90.710 Acquired absence of both cervix and uterus; Z98.890 Other specified postprocedural states; Z79.82 Long term (current) use of aspirin; Z79.899 Other long term (current) drug therapy
CPT/HCPCS: 36415; 80053; 81001; 81025; 83605; 85025; 87040; 96361; 96365; 96375; 99283; J0696; J1815; J1885; J2405; J7030

== ENCOUNTER 2019-07-10 05:37 | Inpatient (IN) | payer OTHER ==
[2019-07-10] VITALS (7 sets, daily range): BP systolic 136–237; BP diastolic 53–105
[~2019-07-10] VITALS: Ht 152.4 cm; Wt 80.3 kg
--- NOTE | 2019-07-10 05:47 | NUR ---
PT AMBULATED TO BED #2
[2019-07-10] MEDS ORDERED: hydrALAZINE 20 MG/ML VIAL IVP ONE (05:50)
[2019-07-10] MEDS ORDERED: ENALAPRILAT 2.5 MG/2 ML VIAL IVP ONE (05:50)
--- NOTE | 2019-07-10 05:50 | NUR ---
54 y/o female c/o high blood pressure, n,v x 1 1/2 days. pt states she hasnt been able to hold down anything and was unable to take her insulin or bp meds. pt denies any abd pain, abd is soft, round, nontender, active bs, +n,v. bp is 244/110 at triage. ermd aware. heart sound s1s2 present. radial pulses are bounding and rapid on bue. lung sounds clear all throughout. a&o x4. steady gait. denies any blurry vision. 3mm perrla brisk. arm strength equal bilat. speech is clear. nka. pmh: stroke (2years ago), htn, dm.
--- NOTE | 2019-07-10 06:04 | NUR ---
xr at bedside.
[2019-07-10 06:48] LABS: BASOPHILS # (AUTO) 0.1 K/uL (0.00-0.22); BASOPHILS % (AUTO) 0.8 % (0.0-2.0); EOSINOPHILS # (AUTO) 0.1 K/uL (0-0.4); EOSINOPHILS % (AUTO) 0.6 % (0.0-4.0); HEMATOCRIT 35.1 % (36-48); LYMPHOCYTES # (AUTO) 1.8 K/uL (2.5-16.5); LYMPHOCYTES % (AUTO) 20.3 % (20.5-51.1); MEAN CORPUSCULAR HEMOGLOBIN 28 pg (27-31); MEAN CORPUSCULAR HGB CONC 34 g/dL (33-37); MEAN CORPUSCULAR VOLUME 81.8 fL (80-94); MONOCYTES # (AUTO) 0.3 K/uL (0.8-1.0); MONOCYTES % (AUTO) 3.5 % (1.7-9.3); NEUTROPHILS # (AUTO) 6.6 K/uL (1.8-7.7); NEUTROPHILS % (AUTO) 74.8 % (42.2-75.2); PLATELET COUNT (AUTO) 286 K/uL (140-450); RED BLOOD CELL COUNT(AUTO) 4.29 MIL/uL (4.20-5.40); RED CELL DISTRIBUTION WIDTH 13.1 % (11.6-13.7); WHITE BLOOD COUNT (AUTO) 8.8 K/uL (4.8-10.8)
[2019-07-10] MEDS ORDERED: ONDANSETRON 4 MG/2 ML VIAL IVP ONE (06:50)
--- NOTE | 2019-07-10 07:10 | NUR ---
gave report to nathalie bal. transfer of care at this time.
--- NOTE | 2019-07-10 07:10 | NUR ---
RECEIVED REPORT FROM RONALDO MARTÍNEZ AND [facility]
--- NOTE | 2019-07-10 07:14 | NUR ---
PT AMBULATED TO RESTROOM. GAIT STEADY
[2019-07-10 07:17] LABS: ALBUMIN 2.2 g/dL (3.4-5.0); ANION GAP 13.8 (8-16); CARBON DIOXIDE 29.2 mmol/L (21-32); CREATININE 1.7 mg/dL (0.6-1.3); TOTAL BILIRUBIN 0.4 mg/dL (0.0-1.0)
[2019-07-10] MEDS ORDERED: ALUMINUM HYD/MAG/SIMETHICONE 30 ML UDC PO ONE (07:30)
[2019-07-10] MEDS ORDERED: ACETAMINOPHEN 325 MG TAB PO ONE (07:30)
[2019-07-10 07:39] LABS: CHOL/HDL RATIO 4.3 (1-4.5)
--- NOTE | 2019-07-10 07:43 | NUR ---
PT STILL VOMITING. GAVE MEDS.
--- NOTE | 2019-07-10 08:50 | NUR ---
PATIENT ARRIVED VIA GURNEY FROM ED. RECEIVED REPORT FROM RONALDO AN. PLANS OF CARE DISCUSSED. PATIENT ALERT AND ORIENTED X4. INTRODUCED SELF. IV INTACT AND PATENT TO RIGHT AC SALINE LOCK. ASSESSMENT TO FOLLOW. SAFETY MEASURES IN PLACE. CALL LIGHT WITHIN REACH.
--- NOTE | 2019-07-10 08:57 | NUR ---
Patient will be admitted to care of DR PETERSON. Admited to [facility]. Will go to room 106B. Belongings list completed. Report to RONALDO MARIE.
[2019-07-10] MEDS ORDERED: ONDANSETRON 4 MG/2 ML VIAL IVP PRN (09:35)
[2019-07-10] MEDS ORDERED: HYDROcodone/APAP 5/325 MG 1 TAB TAB PO PRN (09:35)
[2019-07-10] MEDS ORDERED: ACETAMINOPHEN 325 MG TAB PO PRN (09:35)
[2019-07-10] MEDS ORDERED: MORPHINE SULFATE 4 MG/ML SYR IVP PRN (09:35)
[2019-07-10] MEDS: hydrALAZINE 20 MG/ML VIAL IVP PRN ×2 (11:50→17:01)
--- NOTE | 2019-07-10 11:50 | NUR ---
DR. PETERSON AT BEDSIDE. PATIENT MEDICATED FOR ELEVATED BP AND N/V. WILL CONTINUE TO MONITOR.
[2019-07-10] MEDS ORDERED: PROMETHAZINE 25 MG/ML VIAL IVP PRN (12:05)
[2019-07-10] MEDS ORDERED: KCL 20 MEQ/WATER INJ PREMIX 100 ML IV SCH (12:15)
--- NOTE | 2019-07-10 13:30 | NUR ---
PATIENT OFF UNIT FOR VQ SCAN. PATIENT STABLE.
--- NOTE | 2019-07-10 14:00 | NUR ---
PATIENT IS RESTING QUIETLY IN BED. NO S/S OF DISTRESS NOTED. WILL CONTINUE TO MONITOR.
--- NOTE | 2019-07-10 16:55 | NUR ---
PATIENT RETURNED FROM VQ SCAN.
--- NOTE | 2019-07-10 17:00 | NUR ---
PT MEDICATED FOR ELEVATED BP. WILL MONITOR.
--- NOTE | 2019-07-10 18:45 | NUR ---
BP 144/57, HR 103. PATIENT SLEEPING.
--- NOTE | 2019-07-10 19:00 | NUR ---
REPORT GIVEN TO NIGHT NURSE FOR CONTINUITY OF CARE. PATIENT IN STABLE CONDITION.
--- NOTE | 2019-07-10 19:01 | NUR ---
RECD. RESTING IN BED, AWAKE, A/OX4. RESPIRATION EVEN AND UNLABORED. SALINE LOCK AT THE RIGHT AC G20, PATENT AND INTACT. ABLE TO AMBULATE BY HERSELF. BP - 149/56. NO NAUSEA NOTED. DINNER TRAY AT THE BEDSIDE TABLE STILL UNTOUCHED, OFFERED SANDWICH, AGREED. PLAN OF CARE FOR THE SHIFT DISCUSSED. VERBALIZED UNDERSTANDING. DENIES PAIN 0/10.
--- NOTE | 2019-07-10 20:00 | NUR ---
Patient's Plan of Care was discussed and reviewed with OUT OF TOWN COLLECTION CLERK: ABRAHAM BURGOS
[2019-07-10] MEDS: ATORVASTATIN 80 MG TAB PO SCH (20:34)
[2019-07-10] MEDS: METOPROLOL 25 MG TAB PO SCH (20:34)
[2019-07-10] MEDS: cloNIDine 0.1 MG TAB PO SCH (20:35)
--- NOTE | 2019-07-10 20:37 | NUR ---
DUE PO MEDICATION GIVEN, BP - 137/53, CHECKED AGAIN - 149/56. LOPRESSOR 25 MG. PO GIVEN. WILL CHECKED BP AGAIN AND GIVE CATAPRES IF BP IS HIGH. LIPITOR TAB ACCIDENTALLY DROPPED ON THE FLOOR, GOT ANOTHER FROM [facility]. SANDWICH GIVEN REQUESTED.
[2019-07-11] VITALS: BP 127/52
--- NOTE | 2019-07-11 | NUR ---
SLEEPING COMFORTABLY IN BED.
--- NOTE | 2019-07-11 01:15 | NUR ---
INFORMED DR. PETERSON RESULT OF THE VQ SCAN, UNDER MODIFIED PIOPED CRITERIA, THIS STUDY IS CONSISTENT WITH A LOW PROBABILITY FOR PE AND PATIENT WAS NOT GIVEN DUE PO MEDICATION AT 2100 ONLY LOPRESSOR 25 MG. BECAUSE BP IS 149/56, AT 0000 BP IS 127/52.
--- NOTE | 2019-07-11 03:30 | NUR ---
STILL SLEEPING COMFORTABLY IN BED.
[2019-07-11 04:00] VITALS: BP 158/57
[2019-07-11 05:24] LABS: BASOPHILS % (AUTO) 0.3 % (0.0-2.0); EOSINOPHILS # (AUTO) 0.1 K/uL (0-0.4); EOSINOPHILS % (AUTO) 0.6 % (0.0-4.0); HEMATOCRIT 27.2 % (36-48); HEMOGLOBIN 9.3 g/dL (12.0-16.0); LYMPHOCYTES # (AUTO) 2.1 K/uL (2.5-16.5); LYMPHOCYTES % (AUTO) 25.7 % (20.5-51.1); MEAN CORPUSCULAR HEMOGLOBIN 28 pg (27-31); MEAN CORPUSCULAR HGB CONC 34 g/dL (33-37); MEAN CORPUSCULAR VOLUME 82.7 fL (80-94); MONOCYTES # (AUTO) 0.4 K/uL (0.8-1.0); MONOCYTES % (AUTO) 5.4 % (1.7-9.3); NEUTROPHILS # (AUTO) 5.6 K/uL (1.8-7.7); PLATELET COUNT (AUTO) 257 K/uL (140-450); RED BLOOD CELL COUNT(AUTO) 3.29 MIL/uL (4.20-5.40); RED CELL DISTRIBUTION WIDTH 13.3 % (11.6-13.7); WHITE BLOOD COUNT (AUTO) 8.2 K/uL (4.8-10.8)
[2019-07-11 05:47] LABS: ANION GAP 8.1 (8-16); CARBON DIOXIDE 30.9 mmol/L (21-32); CREATININE 1.7 mg/dL (0.6-1.3)
--- NOTE | 2019-07-11 06:30 | NUR ---
CONDITION REMAIN STABLE. WILL ENDORSE TO AM SHIFT NURSE FOR CONTINUITY OF CARE.
--- NOTE | 2019-07-11 06:53 | NUR ---
PATIENT HAS BEEN SCREENED AND CATEGORIZED MODERATE NUTRITION RISK. PATIENT WILL BE SEEN WITHIN 3-5 DAYS OF ADMISSION. 07/13/19-07/15/19 HINA BEY MS, RDN
--- NOTE | 2019-07-11 07:25 | NUR ---
RECEIVED REPORT FROM DESIGN PRINTING MACHINE SETTER NURSE, FOR CONTINUITY OF CARE. PT IS LYING IN BED, AAOX4. RESPIRATIONS ARE EVEN AND UNLABORED, BREATHING TO RA. RAC 20G IV, IS PATENT AND INTACT, SALINE LOCK. REVIEWED PLAN OF CARE WITH PATIENT. TELE MONITOR ATTACHED. SAFETY MEASURES IN PLACE; CALL LIGHT WITHIN REACH, BED IN LOW POSITION. WILL CONTINUE TO MONITOR.
[2019-07-11 07:36] LABS: PHOSPHORUS 3.5 mg/dL (2.5-4.9)
[2019-07-11 07:48] VITALS: BP 111/63
--- NOTE | 2019-07-11 08:05 | NUR ---
BLOOD PRESSURE: 183/31. RECHECKED BP ON BOTH ARMS WITH PT IN SITTING POSITION. R ARM: 186/75, L ARM: 191/76. PT STATES THAT PER LINK TRAINER MAINTENANCE MAN, THE MOST ACCURATE BP READING IS WHEN STANDING. RECHECKED BP WITH PT IN STANDING POSITION; BP: 111/63, ON THE LEFT ARM. PT DENIES NAUSEA AND HEADACHE; PT STATED THAT SHE FEELS "GOOD", AND IS NOW FINISHING HER BREAKFAST. WILL ADMINISTER SCHEDULED BP MEDS. A HAT WAS PLACED ON THE TOILET TO MONITOR URINE OUTPUT. WILL CONTINUE TO MONITOR.
[2019-07-11] MEDS: cloNIDine 0.1 MG TAB PO SCH ×2 (08:49→20:55)
[2019-07-11] MEDS: FUROSEMIDE 40 MG TAB PO SCH (08:50)
[2019-07-11] MEDS: MULTIVITAMIN 1 TAB PO SCH (08:51)
--- NOTE | 2019-07-11 08:55 | NUR ---
SCHEDULED MEDS GIVEN. MEDICATION EDUCTION PROVIDED, WITH PT VERBALIZING UNDERSTANDING. LASIX AND CATAPRES BP MEDS ADMINISTERED. WILL RECHECK BP AND ADMINISTER OTHER BP MEDS, IF WARRANTED. NO DISTRESS NOTED. WILL CONTINUE TO MONITOR.
[2019-07-11] MEDS: METOPROLOL 25 MG TAB PO SCH ×2 (09:00→20:55)
[2019-07-11] MEDS: LISINOPRIL 20 MG TAB PO SCH (09:00)
[2019-07-11] MEDS ORDERED: ASPIRIN 81 MG TAB.CHEW PO SCH (09:00)
[2019-07-11] MEDS: amLODIPine 5 MG TAB PO SCH (09:00)
[2019-07-11] MEDS ORDERED: BIOTIN 1000 MCG PO SCH (09:00)
--- NOTE | 2019-07-11 09:55 | NUR ---
BP RECHECKED. BP: 111/60. NO DISTRESS NOTED. TELE MONITOR ATTACHED. SAFETY MEASURES IN PLACE. WILL CONTINUE TO MONITOR. Addendum: 07/11/19 at 1013 by Iman Caal RN BP RECHECKED WHILE LYING IN SUPINE POSITION, WITH HOB AT 30 DEGREES. BP: 111/60.
[2019-07-11 10:40] LABS: PROTHROMBIN TIME 9.5 secs (10.8-13.4)
--- NOTE | 2019-07-11 11:01 | NUR ---
PT IS TO BE NPO, SIGN POSTED. RECEIVED A CALL FROM MOOSE FROM [facility] TO INFORM ME THAT HE WILL BE COMING IN TODAY TO PERFORM A HIDASCAN ON THE PT TODAY. PT IS TO REMAIN NPO, AND NO OPIATE PAIN MEDICATION SHOULD BE GIVEN PRIOR TO THE SCAN.
[2019-07-11] MEDS: PIPERACILLIN/TAZOBACTAM 2.25 GM in DEXTROSE 5% 50 ML IV SCH ×2 (11:09→18:39)
--- NOTE | 2019-07-11 11:10 | NUR ---
ORDERED IV ZOSYN HUNG, AND RUNNING PER ORDERS. PT IS RESTING IN BED. NO DISTRESS NOTED. WILL CONTINUE TO MONITOR.
[2019-07-11] MEDS: DEXT 5% / NACL 0.9% 500 ML IV SCH ×2 (11:45→20:05)
[2019-07-11 12:00] VITALS: BP 158/66
[2019-07-11] MEDS ORDERED: KCL 20 MEQ/WATER INJ PREMIX 100 ML IV SCH (12:00)
--- NOTE | 2019-07-11 13:05 | NUR ---
IV POTASSIUM HUNG, AND RUNNING PER ORDERS. PT'S BP CHECKED; BP: 174/82. ORDERED LOPRESSOR AND LISINOPRIL GIVEN. NO DISTRESS NOTED. WILL CONTINUE TO MONITOR.
--- NOTE | 2019-07-11 15:40 | NUR ---
MOOSE, FROM [facility], ESCORTED THE PT OFF OF THE UNIT FOR THE HIDA SCAN.
[2019-07-11 16:00] VITALS: BP 158/57
--- NOTE | 2019-07-11 18:40 | NUR ---
GERSON PORTER, AND RUNNING PER ORDERS. MEDICATION EDUCATION PROVIDED. PT IS REQUESTING FOOD. DR RAY, WHO IS SUGAR GRINDER FOR DR ANDRES WAS PAGED REGARDING PT'S DIET ORDERS. THE PT IS CURRENTLY NPO. PT IS RESTING IN BED, NO DISTRESS NOTED. TELE MONITOR ATTACHED. SAFETY MEASURES IN PLACE.
--- NOTE | 2019-07-11 19:00 | NUR ---
PER DR RAY, A CARDIAC DIET TO BE ORDERED.
--- NOTE | 2019-07-11 19:07 | NUR ---
LEFT A MESSAGE WITH FNS INFORMING THEM OF CHANGE IN DIET ORDER, AND REQUESTING THAT A MEAL BE PROVIDED FOR THE PATIENT.
--- NOTE | 2019-07-11 19:25 | NUR ---
RECEIVED REPORT FROM DAY SHIFT NURSE. PT IN BED RESTING. AWAKE, ALERT, AND ORIENTED. ABLE TO MAKE NEEDS KNOWN/ RESPIRATIONS EVEN AND UNLABORED TO ROOM AIR. SKIN IS DRY AND INTACT. ABDOMEN IS SOFT. DENIES ANY PAIN OR DISCOMFORT AT THIS TIME. IV ACCESS ON R AC G20 PATENT AND INTACT. IVF INFUSING WELL. PLAN OF CARE DISCUSSED. PT VERBALIZED UNDERSTANDING. NO OTHER REQUESTS MADE AT THIS TIME. PT KEPT COMFORTABLE. SAFETY MEASURES IN PLACE. CALL LIGHT WITHIN REACH. WILL CONTINUE TO MONITOR.
--- NOTE | 2019-07-11 19:25 | NUR ---
ENDORSED TO FAMILY MEDIATOR NURSE FOR CONTINUITY OF CARE. PT IS IN STABLE CONDITION.
[2019-07-11 20:00] VITALS: BP 177/68
[2019-07-11] MEDS: ATORVASTATIN 80 MG TAB PO SCH (20:56)
--- NOTE | 2019-07-11 20:56 | NUR ---
VS TAKEN. BP 177/68, HR 82. SCHEDULED MEDS GIVEN ORDERED. PT DENIES ANY DISCOMFORT. ABLE TO STAND. CALL LIGHT WITHIN REACH. WILL CONTINUE TO MONITOR.
--- NOTE | 2019-07-11 22:25 | NUR ---
BP REASSESSED. BP 101/64. HR 78. PT RESTING. DENIES ANY DISCOMFORT. CALL LIGHT WITHIN REACH. WILL CONTINUE TO MONITOR.
[2019-07-12] VITALS: BP 110/50
--- NOTE | 2019-07-12 00:05 | NUR ---
VITAL SIGNS WNL. PT NOT IN DISTRESS. DENIES ANY DISCOMFORT AT THIS TIME. PT KEPT COMFORTABLE. CALL LIGHT WITHIN REACH. WILL CONTINUE TO MONITOR.
[2019-07-12] MEDS: PIPERACILLIN/TAZOBACTAM 2.25 GM in DEXTROSE 5% 50 ML IV SCH ×2 (02:05→11:00)
[2019-07-12] MEDS: DEXT 5% / NACL 0.9% 500 ML IV SCH (02:06)
--- NOTE | 2019-07-12 02:06 | NUR ---
NEW IV FLUID HANGED. SCHEDULED MEDS GIVEN ORDERED. PT SLEEPING. NO S/SX OF DISTRESS NOTED. SAFETY MEASURES IN PLACE. WILL CONTINUE TO MONITOR.
[2019-07-12 04:00] VITALS: BP 129/50
--- NOTE | 2019-07-12 04:11 | NUR ---
PT RESTING IN BED. VS WITHIN NORMAL LIMITS. NO COMPLAINS MADE AT THIS TIME. NO REQUESTS MADE WELL. PT KEPT COMFORTABLE. CALL LIGHT WITHIN REACH. WILL CONTINUE TO MONITOR.
[2019-07-12 06:40] LABS: ANION GAP 8.5 (8-16); CARBON DIOXIDE 32.1 mmol/L (21-32); CREATININE 1.8 mg/dL (0.6-1.3); MAGNESIUM 1.9 mg/dL (1.8-2.4); PHOSPHORUS 3.2 mg/dL (2.5-4.9); POTASSIUM 3.6 mmol/L (3.5-5.1)
[2019-07-12 06:49] LABS: BASOPHILS # (AUTO) 0.1 K/uL (0.00-0.22); BASOPHILS % (AUTO) 0.8 % (0.0-2.0); EOSINOPHILS # (AUTO) 0.1 K/uL (0-0.4); EOSINOPHILS % (AUTO) 1.2 % (0.0-4.0); HEMATOCRIT 25.8 % (36-48); HEMOGLOBIN 8.8 g/dL (12.0-16.0); LYMPHOCYTES # (AUTO) 2.5 K/uL (2.5-16.5); LYMPHOCYTES % (AUTO) 30.4 % (20.5-51.1); MEAN CORPUSCULAR HEMOGLOBIN 28 pg (27-31); MEAN CORPUSCULAR HGB CONC 34 g/dL (33-37); MEAN CORPUSCULAR VOLUME 83.2 fL (80-94); MONOCYTES # (AUTO) 0.4 K/uL (0.8-1.0); MONOCYTES % (AUTO) 4.8 % (1.7-9.3); NEUTROPHILS # (AUTO) 5.2 K/uL (1.8-7.7); NEUTROPHILS % (AUTO) 62.8 % (42.2-75.2); PLATELET COUNT (AUTO) 223 K/uL (140-450); RED CELL DISTRIBUTION WIDTH 12.8 % (11.6-13.7); WHITE BLOOD COUNT (AUTO) 8.3 K/uL (4.8-10.8)
--- NOTE | 2019-07-12 07:01 | NUR ---
RECEIVED CRITICAL LAB REPORT AT 06:51AM. CALLED TWICE. NOT PICKING UP. ENDORSED ACCORDINGLY.
--- NOTE | 2019-07-12 07:12 | NUR ---
RECEIVED REPORT FROM CLINICAL STUDY MANAGER NURSE, FOR CONTINUITY OF CARE. PT IS SITTING UP IN BED, AAOX4. RESPIRATIONS ARE EVEN AND UNLABORED, BREATHING TO RA. RAC 20G IV, IS PATENT AND INTACT, FLUIDS RUNNING PER ORDERS. REVIEWED PLAN OF CARE WITH PATIENT. TELE MONITOR ATTACHED. SAFETY MEASURES IN PLACE; CALL LIGHT WITHIN REACH, BED IN LOW POSITION. WILL CONTINUE TO MONITOR.
--- NOTE | 2019-07-12 07:15 | NUR ---
GAVE REPORT TO DAY SHIFT NURSE FOR CONTINUITY OF CARE. PT IN STABLE CONDITION.
--- NOTE | 2019-07-12 07:20 | NUR ---
DR PETERSON CALLED. AWAITING CALL BACK FOR CRITICAL LAB REPORT. ENDORSED TO DAY SHIFT NURSE.
[2019-07-12] MEDS ORDERED: DEXT 5% /NACL 0.9% 1,000 ML IV SCH (07:22)
--- NOTE | 2019-07-12 07:58 | NUR ---
INFORMED DR. PEPE OF CRITICAL LABS: GLUCOSE 439, CA 7.9, CR 1.8, BUN 27; PER DR PEPE, HEMOGLOBIN A1C AND INSULIN COVERAGE.
[2019-07-12 08:00] VITALS: BP 158/66
[2019-07-12] MEDS ORDERED: INSULIN LISPRO SLIDING SCALE 100 UNITS/ML VIAL SUBQ PRN (08:30)
[2019-07-12] MEDS ORDERED: DEXTROSE 50% 50 ML SYR IVP PRN (08:30)
[2019-07-12] MEDS: cloNIDine 0.1 MG TAB PO SCH (08:59)
[2019-07-12] MEDS: FUROSEMIDE 40 MG TAB PO SCH (09:00)
[2019-07-12] MEDS: amLODIPine 5 MG TAB PO SCH (09:00)
[2019-07-12] MEDS: METOPROLOL 25 MG TAB PO SCH (09:00)
[2019-07-12] MEDS: MULTIVITAMIN 1 TAB PO SCH (09:01)
[2019-07-12] MEDS: LISINOPRIL 20 MG TAB PO SCH (09:02)
--- NOTE | 2019-07-12 09:05 | NUR ---
SCHEDULED MEDS GIVEN. BP: 181/72. PT TOLERATED PO MEDS WELL. MEDICATION EDUCATION PROVIDED. WILL REASSESS BP. NO DISTRESS NOTED. SAFETY MEASURES IN PLACE. TELE MONITOR ATTACHED. WILL CONTINUE TO MONITOR.
--- NOTE | 2019-07-12 10:20 | NUR ---
SOCIAL WORK NOTE: Basic Screen: Yes High Risk DC Screen [place]: JERE Carpenter Relationship: DAUGHTER Pre-Admission Living Arrangements: Lives with Other Prior ADL Independent Current Home Health Name/Tel: N/A Current DME/02 Name/Tel: N/A Current Hospice Name/Tel: N/A Current Dialysis Name/Tel: N/A Healthcare Decision Maker: Patient Advance Directive No Physician Orders for Life Sustaining Treatment Form No Patient/Family Have Educational Needs No Discipline: Case Mgt/Social Svcs Tentative Discharge Plan/Destination: No Needs Identified Will require assistance post discharge: No Referred to Steel Post Installer Supervisor: No Tentative Discharge Plan Summary: PATIENT IS A 54-YEAR-OLD FEMALE ADMITTED FOR HYPERTENSIVE EMERGENCY. PATIENT HAS PMHX OF HYPERTENSION, HYPERLIPEDEMIA, AND CVA. PATIENT WAS ADMITTED FROM HOME. SW CONTACTED PATIENT'S DAUGHTER JERE BANUELOS [phone]. PER JERE PATIENT RESIDES AT [address] [place] [address] [place] [phone] AND LIVES WITH HER OTHER DAUGHTER. JERE STATED THAT PATIENT IS INDEPENDENT WITH ALL ADLS AND REPORTS NO HISTORY OF SUBSTANCE ABUSE OR MENTAL HEALTH. TENTATIVE DISCHARGE PLAN IS FOR PATIENT TO RETURN HOME. NO FURTHER NEEDS IDENTIFIED. Signature: GEN REEDER Date: July 12, 2019 Time: 10:19
[2019-07-12] MEDS ORDERED: INSU10SU2 SQ (10:31)
--- NOTE | 2019-07-12 10:31 | NUR ---
CALLED PT'S PHARMACY, [facility], FOR INFORMATION ON PT'S HOME INSULIN. PER PHARMACIST, PT IS PRESCRIBED HUMULIN 70/30, 18 UNITS. IN THE MORNING, AND AT BEDTIME. HUMULIN 70/30 ADDED TO HOME MEDICATION RECONCILIATION LIST.
[2019-07-12] MEDS ORDERED: BLOOD GLUCOSE MONITORING 1 DEV DEV FS SCH (11:30)
[2019-07-12 12:00] VITALS: BP 155/64
--- NOTE | 2019-07-12 14:08 | NUR ---
DC PLANNIN YRS OLD FEMALE PATIENT WAS ADMITTED FROM HOME WITH A DX OF HYPERTENSIVE EMERGENCY BP ON ADMISSION PT HAS A HX OF STROKE 2018 , HLD AND HTN . CT HEAD SHOWED NO ACUTE INTRACRANIAL PATHOLOGY. CXR SHOWED NO ACUTE CARDIOPULMONARY PROCESS. ULTRA SOUND SHOWED MULTIPLE ECHOGENIC SHADOWING STONES. ORDERED CT ABDOMEN AND HIDA SCAN. CT ABDOMEN SHOWED LARGE GALLSTONE WITHIN GB AND LOWER MIDLINE VENTRAL HERNIA LIKELY VOMITING. NO SURGERY NEEDED AT THIS TIME ADVISED PATIENT TO FOLLOW UP IN OFFICE TO DISCUSS POSSIBLE ELECTIVE LAP MAYELA. DC PLAN TO GO HOME AND FOLLOW UP WITH DR ANDRES OUTPATIENT. CM TO FOLLOW Addendum: 07/13/19 at 1048 by Susana Agudelo CM SCHEDULED APPT FOR PATIENT WITH PCP ALEIDA VILLARREAL [phone]. FOLLOW UP APPT July AT 0900. REACHED OUT TO PT. FOR APPOINTMENT REMINDER.
--- NOTE | 2019-07-12 15:05 | NUR ---
DISCHARGE INSTRUCTIONS GIVEN AND EXPLAINED, WITH PT VERBALIZING UNDERSTANDING. ALL DISCHARGE PAPERWORK SIGNED. ARM BANDS, TELE MONITOR, AND IV REMOVED, WITH CATHETER INTACT. PT'S DAUGHTERS ARE WAITING TO TAKE THE PT HOME. PT ESCORTED TO THE LOBBY VIA WHEELCHAIR. ALL OF THE PT'S BELONGINGS ARE IN HER POSSESSION, ALONG WITH DISCHARGE PACKET. PT IS IN STABLE CONDITION.
== END 2019-07-12 15:10 | disposition home or self-care (01) | DRG 469 ==
LOC: MED 05:37 → MTU 08:11
PROVIDERS: ADMIT Internal Medicine Pulmonary Disease; ATTEND Internal Medicine Pulmonary Disease
DX: N17.9 Acute kidney failure, unspecified (principal); E43 Unspecified severe protein-calorie malnutrition; E11.22 Type 2 diabetes mellitus with diabetic chronic kidney disease; I16.0 Hypertensive urgency; E87.6 Hypokalemia; E86.9 Volume depletion, unspecified; E78.5 Hyperlipidemia, unspecified; K80.80 Other cholelithiasis without obstruction; I12.9 Hypertensive chronic kidney disease with stage 1 through stage 4 chronic kidney disease, or unspecified chronic kidney disease; N18.9 Chronic kidney disease, unspecified; Z68.34 Body mass index [BMI] 34.0-34.9, adult; Z86.73 Personal history of transient ischemic attack (TIA), and cerebral infarction without residual deficits; Z90.710 Acquired absence of both cervix and uterus; Z79.82 Long term (current) use of aspirin; Z79.899 Other long term (current) drug therapy
CPT/HCPCS: 36415; 70450; 71045; 76700; 78445; 78582; 80048; 80053; 83036; 83690; 83735; 83880; 84100; 84484; 85025; 85379; 85610; 85730; 87081; 93005; 96374; 96375; 99285; A9510; J0360; J1815; J2405; J2543; J2550; J3480; J3490; J7030; J7042; J7060; Q0092

== ENCOUNTER 2019-10-15 17:40 | Inpatient (IN) | payer OTHER, SELFPAY ==
[~2019-10-15] VITALS: Ht 157.5 cm; Wt 72.6 kg
[~2019-10-15 17:40] MED LIST changes: +HYDR-1100 PO; +INSU10SU2 SQ; +ISOS10TA9 PO; +TRA200 PO
[2019-10-15 17:44] VITALS: BP 200/91
--- NOTE | 2019-10-15 18:03 | NUR ---
54 y/o female from home c/o ulcer present to bottom of rt foot. Noticable ulcer at this time with clear discharge. Denies pain. Afebrile upon arrival. Able to ambulate. Pt states she has been putting ointment on foot but does not recall the name of the ointment. Pt tearful stating "i do not want to lose my foot." Hypertensive at this time. ERMD made aware of BP reading. Placed on cardiac monitor technician. medhx: DM, HTN
--- NOTE | 2019-10-15 18:05 | NUR ---
Dr Owusu at bedside examining pt
[2019-10-15] MEDS ORDERED: hydrALAZINE 20 MG/ML VIAL IVP ONE (18:15)
[2019-10-15] MEDS ORDERED: VANCOMYCIN 1,000 MG in DEXTROSE 5% 250 ML IV ONE (18:15)
[2019-10-15] MEDS ORDERED: AMPICILLIN/SULBACTAM 3 GM in NACL 0.9% 100 ML IV ONE (18:15)
[2019-10-15] MEDS ORDERED: AMPICILLIN/SULBACTAM 3 GM VIAL ONE (18:19)
--- NOTE | 2019-10-15 18:33 | NUR ---
Lab at bedside for blood draw
[2019-10-15 18:48] LABS: BASOPHILS # (AUTO) 0.1 K/uL (0.00-0.22); BASOPHILS % (AUTO) 0.7 % (0.0-2.0); EOSINOPHILS # (AUTO) 0.1 K/uL (0-0.4); EOSINOPHILS % (AUTO) 1.8 % (0.0-4.0); HEMATOCRIT 26.4 % (36-48); HEMOGLOBIN 9.1 g/dL (12.0-16.0); LYMPHOCYTES # (AUTO) 1.8 K/uL (2.5-16.5); LYMPHOCYTES % (AUTO) 24.1 % (20.5-51.1); MEAN CORPUSCULAR HEMOGLOBIN 28 pg (27-31); MEAN CORPUSCULAR HGB CONC 35 g/dL (33-37); MEAN CORPUSCULAR VOLUME 79.3 fL (80-94); MONOCYTES # (AUTO) 0.5 K/uL (0.8-1.0); MONOCYTES % (AUTO) 6.7 % (1.7-9.3); NEUTROPHILS % (AUTO) 66.7 % (42.2-75.2); PLATELET COUNT (AUTO) 313 K/uL (140-450); RED BLOOD CELL COUNT(AUTO) 3.32 MIL/uL (4.20-5.40); RED CELL DISTRIBUTION WIDTH 12.6 % (11.6-13.7); WHITE BLOOD COUNT (AUTO) 7.5 K/uL (4.8-10.8)
--- NOTE | 2019-10-15 18:54 | NUR ---
Ultrasound at bedside
--- NOTE | 2019-10-15 19:07 | NUR ---
Report given to RONALDO Londono. Transfer of care at this time
--- NOTE | 2019-10-15 19:07 | NUR ---
REPORT RECEIVED FROM RONALDO BERMAN FOR CONTINUITY OF CARE
[2019-10-15 19:11] LABS: ANION GAP 12.9 (8-16); CARBON DIOXIDE 26.1 mmol/L (21-32); CREATININE 2.1 mg/dL (0.6-1.3)
--- NOTE | 2019-10-15 19:13 | NUR ---
glucose 426-- critical value received from lab. Dr Owusu made aware
--- NOTE | 2019-10-15 19:21 | NUR ---
Note shilpi in ED - 10/15/19 at 1926 by MED PT RESTING IN BED, LOCKED AND IN LOWEST POSITION, HOB ELEVATED , SIDE RAIL X1. RR EVEN AND UNLABORED , A/O X 4 , VSS. PT CURRENT BP 170/82 , SAO2 100%.
--- NOTE | 2019-10-15 19:25 | NUR ---
ERMD AT BEDSIDE FOR EVALUATION.
--- NOTE | 2019-10-15 19:26 | NUR ---
Jaspreet dobbins in [facility] - 10/15/19 at 1926 by LENNY ERMD AT BEDSIDE FOR EVALUATION.
[2019-10-15] MEDS ORDERED: INSULIN REGULAR, HUMAN 100 UNIT/ML VIAL SUBQ ONE (19:30)
[2019-10-15] MEDS ORDERED: NACL 0.9% 1,000 ML IV ONE (19:30)
[2019-10-15] MEDS ORDERED: VANCOMYCIN 1,000 MG VIAL ONE (19:48)
[2019-10-15] MEDS ORDERED: POTASSIUM CHLORIDE 10 MEQ TABER PO ONE (19:55)
[2019-10-15] MEDS ORDERED: DEXTROSE 50% 50 ML SYR IVP PRN (20:10)
[2019-10-15] MEDS ORDERED: hydrALAZINE 20 MG/ML VIAL IVP PRN (20:10)
--- NOTE | 2019-10-15 20:10 | NUR ---
Patient noted to have existing wounds upon arrival to ER. Photos taken of wound and placed in chart.
[2019-10-15] MEDS ORDERED: VANCOMYCIN PER PHARMACY MC PRN (20:15)
[2019-10-15] MEDS ORDERED: ONDANSETRON 4 MG/2 ML VIAL IVP PRN (20:15)
[2019-10-15] MEDS ORDERED: HYDROcodone/APAP 5/325 MG 1 TAB TAB PO PRN (20:15)
[2019-10-15] MEDS ORDERED: MORPHINE SULFATE 4 MG/ML SYR IVP PRN (20:15)
[2019-10-15] MEDS ORDERED: ACETAMINOPHEN 325 MG TAB PO PRN (20:15)
[2019-10-15 21:30] VITALS: BP 152/72
--- NOTE | 2019-10-15 21:30 | NUR ---
RECEIVED PT M . ER / ABHISHEK AAOX4 , NID - O2 SAT WNL . IV SITE INTACT AND PATENT . ON TELE MONITOR - SR . W/ DIABETIC WOUND ON BOTH FOOT .- WILL PHOTOGRAPH AND ASSESS . DENIES ANY PAIN AT THIS TIME . AMBULATES TO BED W/ ASSIST . ADM . ASSESSMENT - DONE . SAFETY MEASURES IN PLACE . POC DISCUSSED AND VERBALIZE UNDERSTANDING . WILL CONT. TO MONITOR.
--- NOTE | 2019-10-15 21:55 | NUR ---
Patient will be admitted to care of DR. PEPE. Admited to TELEMETRY. Will go to [id number]. Belongings list completed. Report to RONALDO BLUE.
[2019-10-15] MEDS: NACL 0.9% 1,000 ML IV SCH (22:06)
[2019-10-15] MEDS ORDERED: cefTRIAXone 1,000 MG VIAL ONE (22:21)
[2019-10-15] MEDS: CLONIDINE HYDROCHLORIDE 0.1 MG TAB PO SCH (22:35)
[2019-10-15] MEDS: ATORVASTATIN 80 MG TAB PO SCH (22:35)
[2019-10-15] MEDS: METOPROLOL 25 MG TAB PO SCH (22:35)
[2019-10-15] MEDS: LABETALOL 200 MG TAB PO SCH (22:36)
[2019-10-15] MEDS: BLOOD GLUCOSE MONITORING 1 DEV DEV FS SCH (23:30)
[2019-10-16] VITALS: BP 130/66
--- NOTE | 2019-10-16 | NUR ---
MADE ROUNDS . NO S/SX OF ACUTE DISTRESS NOTED . WILL CONT. TO MONITOR.
[2019-10-16 04:00] VITALS: BP 133/70
--- NOTE | 2019-10-16 04:00 | NUR ---
MADE ROUNDS , NO S/SX OF ACUTE DISTRESS NOTED AT THIS TIME . WILL CONT. TO MONITOR.
[2019-10-16] MEDS: BLOOD GLUCOSE MONITORING 1 DEV DEV FS SCH ×5 (06:00→21:24)
--- NOTE | 2019-10-16 06:00 | NUR ---
NO COMPLAIN MADE . RESTING ON BED COMFORTABLY .
[2019-10-16] MEDS: INSULIN LISPRO SLIDING SCALE 100 UNITS/ML VIAL SUBQ PRN ×3 (06:35→16:59)
[2019-10-16 06:52] LABS: BASOPHILS # (AUTO) 0.1 K/uL (0.00-0.22); EOSINOPHILS # (AUTO) 0.1 K/uL (0-0.4); MEAN CORPUSCULAR HGB CONC 35 g/dL (33-37); RED CELL DISTRIBUTION WIDTH 12.4 % (11.6-13.7)
[2019-10-16 06:59] LABS: BASOPHILS % (AUTO) 0.9 % (0.0-2.0); HEMATOCRIT 21.8 % (36-48); HEMOGLOBIN 7.5 g/dL (12.0-16.0); LYMPHOCYTES # (AUTO) 2.2 K/uL (2.5-16.5); LYMPHOCYTES % (AUTO) 31.9 % (20.5-51.1); MEAN CORPUSCULAR HEMOGLOBIN 27 pg (27-31); MEAN CORPUSCULAR VOLUME 79.4 fL (80-94); MONOCYTES # (AUTO) 0.5 K/uL (0.8-1.0); MONOCYTES % (AUTO) 6.9 % (1.7-9.3); NEUTROPHILS % (AUTO) 58.3 % (42.2-75.2); PLATELET COUNT (AUTO) 234 K/uL (140-450); RED BLOOD CELL COUNT(AUTO) 2.75 MIL/uL (4.20-5.40); WHITE BLOOD COUNT (AUTO) 6.8 K/uL (4.8-10.8)
[2019-10-16 07:11] LABS: ANION GAP 11.1 (8-16); CARBON DIOXIDE 27.5 mmol/L (21-32)
[2019-10-16 07:14] LABS: MAGNESIUM 1.6 mg/dL (1.8-2.4); PHOSPHORUS 4.3 mg/dL (2.5-4.9)
[2019-10-16 07:27] LABS: PROTHROMBIN TIME 9.7 secs (10.8-13.4)
[2019-10-16] MEDS: INSULIN NPH HUM/REG INSULIN HM 100 UNIT/ML 10 ML VIAL SUBQ SCH ×5 (07:30→21:24)
--- NOTE | 2019-10-16 07:30 | NUR ---
ENDORSED TO AM SHIFT - PT - STABLE .
--- NOTE | 2019-10-16 07:30 | NUR ---
RECEIVED PATIENT FROM NIGHT NURSE. PATIENT IS AWAKE, ALERT, ORIENTED X4. RESP EVEN AND UNLABORED ON ROOM AIR. LAC IV NOTED INTACT AND PATENT. PATIENT DENIES OF PAIN AT THIS TIME. PLAN OF CARE DISCUSSED WITH PATIENT. PATIENT VERBALIZED UNDERSTANDING. PATIENT AMBULATING WITH STEADY GAIT TO THE BATHROOM WITH STANDBY ASSIST. SAFETY MEASURES IN PLACE. CALL LIGHT WITHIN REACH. WILL CONTINUE TO MONITOR.
[2019-10-16 07:32] LABS: POTASSIUM 2.6 mmol/L (3.5-5.1)
[2019-10-16 08:00] VITALS: BP 180/73
[2019-10-16] MEDS ORDERED: POTASSIUM CHLORIDE 10 MEQ TABER PO SCH (08:50)
[2019-10-16] MEDS ORDERED: MAG SULF 2000 MG/WATER PREMIX 50 ML IV SCH (08:50)
[2019-10-16] MEDS: ASPIRIN 81 MG TAB.CHEW PO SCH (08:59)
[2019-10-16] MEDS: MULTIVITAMIN 1 TAB PO SCH (08:59)
[2019-10-16] MEDS: CLONIDINE HYDROCHLORIDE 0.1 MG TAB PO SCH ×2 (08:59→21:00)
[2019-10-16] MEDS: lisinopriL 20 MG TAB PO SCH (09:00)
[2019-10-16] MEDS ORDERED: hydrALAZINE 25 MG TAB PO SCH (09:00)
[2019-10-16] MEDS: amLODIPine 5 MG TAB PO SCH (09:00)
[2019-10-16] MEDS ORDERED: BIOTIN 1000 MCG PO SCH (09:00)
[2019-10-16] MEDS ORDERED: KCL 20 MEQ/WATER INJ PREMIX 200 ML IV ONE (09:00)
[2019-10-16] MEDS: ISOSORBIDE DINITRATE 10 MG TAB PO SCH ×3 (09:01→16:57)
[2019-10-16] MEDS: METOPROLOL 25 MG TAB PO SCH ×2 (09:01→21:24)
--- NOTE | 2019-10-16 09:10 | NUR ---
MORNING ROUTINE MEDICATIONS GIVEN. TRANDATE HELD D/T MULTIPLE HEART MEDICATIONS GIVEN AT THIS TIME. PATIENT VERBALIZED UNDERSTANDING. BP 180/73 HR 71. PATIENT TOLERATING MEDICATIONS WELL. NO NOTED DISTRESS AT THIS TIME. DR. MCKENZIE AVIATION BOATSWAIN'S MATE AT BEDSIDE TO SEE PATIENT D/T DIABETIC FOOT ULCER. CALL LIGHT WITHIN REACH. WILL CONTINUE TO MONITOR.
[2019-10-16] MEDS: LABETALOL 200 MG TAB PO SCH ×2 (10:26→21:24)
--- NOTE | 2019-10-16 10:33 | NUR ---
PATIENT HAS BEEN SCREENED AND CATEGORIZED HIGH NUTRITION RISK. PATIENT WILL BE SEEN WITHIN 1-2 DAYS OF ADMISSION. 10/16/19 - 10/17/19 LINNEA MURILLO MBA, RD
--- NOTE | 2019-10-16 10:35 | NUR ---
TRANDATE GIVEN AT THIS TIME. REASSESSMENT OF BP 120/55 HR 73. NO NOTED DISTRESS. WILL CONTINUE TO MONITOR.
[2019-10-16] MEDS ORDERED: VANCOMYCIN 1,000 MG in NACL 0.9% 250 ML IV SCH (11:00)
--- NOTE | 2019-10-16 11:00 | NUR ---
DR MCKENZIE PERFORMED A SHARP DEBRIDMENT OF CALLUS X1 TO RIGHT PLANTAR. DRESSING WITH 4X4 AND ACRYLIC WRAPPED. POST OP SHOES GIVEN TO PATIENT AND ENCOURAGED AMBULATING WITH WEIGHT BEARING ON HEEL. PATIENT VERBALIZED UNDERSTANDING.
[2019-10-16 12:00] VITALS: BP 125/59
--- NOTE | 2019-10-16 13:55 | NUR ---
VANCO STARTED. PATIENT BEEN RECEIVING KRIDER FOR REPLACEMENT OF LOW POTASSIUM. WITH 1 IV ACCESS
[2019-10-16 16:00] VITALS: BP 130/62
--- NOTE | 2019-10-16 16:18 | NUR ---
10/16/19 RD INITIAL ASSESSMENT COMPLETED PLEASE REFER TO NUTRITION ASSESSMENT UNDER CARE ACTIVITY FOR ESTIMATED NUTRITIONAL NEEDS. RD RECOMMENDATIONS: 1. RECOMMEND CONTINUE 60GM CCHO DIET. 2. EDUCATE PT ON DIET. 3. ADD DIET HEALTHSHAKE BID WITH MEALS, HELP MEET NEEDS & INCREASED RECOVERY. 4. F/U 3-5 DAYS; MODERATE RISK LINNEA MURILLO MBA, RD
--- NOTE | 2019-10-16 16:50 | NUR ---
BLOOD GLUCOSE 167. INSULIN COVERAGE GIVEN PER SLIDING SCALE. PATIENT REQUESTED TO HAVE 3 SOUPS FOR HER DINNER. FNS CONTACTED AND WAS ABLE TO ACCOMMODATE PATIENT. RESP EVEN AND UNLABORED ON ROOM AIR. DENIES OF PAIN AT THIS TIME. CALL LIGHT WITHIN REACH. WILL CONTINUE TO MONITOR.
--- NOTE | 2019-10-16 19:26 | NUR ---
ENDORSED PATIENT TO NIGHT NURSE. PATIENT IN STABLE CONDITION.
--- NOTE | 2019-10-16 19:28 | NUR ---
RECEIVED REPORT FROM ROXANA RN. PT IS STABLE. IN NO DISTRESS ON RA. RECEIVING IVF NS AT 40ML/HR. WILL CONTINUE WITH POC.
--- NOTE | 2019-10-16 19:58 | NUR ---
PT HAD EPISODE OF VOMITING X 1. PT WAS ASSISTED TO RESTROOM AND ASSISTED WITH CLEAN UP. PT WAS GIVEN ZOFRAN 4MG IVP FOR CONTINUED NAUSEA. WILL CONTINUE TO MONITOR NAYELY LIGHT WITHIN REACH. ALL SAFETY MEASURES IN PLACE.
[2019-10-16 20:00] VITALS: BP 120/63
--- NOTE | 2019-10-16 20:50 | NUR ---
PT IS AWAKE AND ALERT ORIENTED X 4. ZOFRAN EFFECTIVE NO MORE VOMITING DENIES NAUSEA. PT TOLERATED PO MEDICATION WITH NO PROBLEMS CATAPRES WAS HELD DUE TO HAVING TOO MANY BP MEDICATION AT THIS TIME FOR PT'S CURRENT BP. V/S: 97.0, 73, 16, 120/63, 95 % RA. PAIN 0/10. RIGHT FOOT ULCER COVERED WITH GAUGE NO BLOOD OR DISCHARGE. AREA DRY. DENIES PAIN. CONTINUES TO RECEIVE NS AT 40ML/HR. WILL CONTINUE TO MONITOR
[2019-10-16] MEDS: ATORVASTATIN 80 MG TAB PO SCH (21:24)
--- NOTE | 2019-10-16 22:49 | NUR ---
PT LAYING IN BED AWAKE WATCHING TV IN NO DISTRESS. EATING NIGHT TIME SNACK ALL NEEDS MET AT THIS TIME. WILL CONTINUE TO MONITOR
[2019-10-17] VITALS: BP 134/57
--- NOTE | 2019-10-17 | NUR ---
DURING ROUNDS PT. IS AWAKE AND ALERT HAD NIGHT TIME SNACK IN NO DISTRESS. RESPIRATION EVEN AND UNLABORED. WILL CONTINUE TO MONITOR.
--- NOTE | 2019-10-17 01:15 | NUR ---
DURING ROUNDS PT OBSERVED TO HAVE LEFT SIDED FACIAL WEAKNESS AND NOT EASILY AROUSABLE. PT ABLE TO STATE HER NAME AND STATE SHE WAS IN A HOSPITAL AND FOLLOW COMMAND BY RASING HER ARMS AND MOVING HER FEET. B/P CHECK AT THE TIME WAS 99/55 HR 59. BS WAS CHECKED AND IT WAS 23. PT WAS IMMEDIATELY GIVEN DEXTROSE IVP AND PT RESPONDED SHORTLY AFTER ADMINISTRATION. PT ORIENTATION BACK TO BASELINE NO FACIAL WEAKNESS. WILL CONTINUE TO MONITOR.
--- NOTE | 2019-10-17 01:30 | NUR ---
BS CHECKED AFTER 30MIN WAS 121. PT IS FULLY ORIENTED X 4 AND STATING SHE WASN'T SURE WHAT HAPPENED HOWEVER REPORTED DISORIENTATION. DENIES ANY DISCOMFORT OR DISTRESS AT THIS TIME. V/S: 97.1, 58, 18, 106/51, 97 % RA. WILL CONTINUE TO MONITOR.
[2019-10-17] MEDS: NACL 0.9% 1,000 ML IV SCH (02:30)
--- NOTE | 2019-10-17 02:30 | NUR ---
PT RESTING IN NO DISTRESS. RESPIRATION EVEN AND UNLABORED. WILL CONTINUE TO MONITOR.
--- NOTE | 2019-10-17 03:30 | NUR ---
REMAINS ASLEEP IN NO DISTRESS. SPO2 98% RA RESPIRATION EVEN AND UNLABORED. CALL LIGHT WITHIN REACH.
[2019-10-17 04:00] VITALS: BP 126/60
--- NOTE | 2019-10-17 04:30 | NUR ---
V/S: 97.9, 59, 18, 126/60, 97% RA. RESTING IN BED IN NO DISTRESS. RESPIRATION EVEN AND UNLABORED.
--- NOTE | 2019-10-17 06:16 | NUR ---
RESTING IN BED IN NO DISTRESS. RESPIRATION EVEN AND UNLABORED. ALL NEEDS MET AT THIS TIME.
[2019-10-17] MEDS: INSULIN NPH HUM/REG INSULIN HM 100 UNIT/ML 10 ML VIAL SUBQ SCH (06:34)
[2019-10-17] MEDS: BLOOD GLUCOSE MONITORING 1 DEV DEV FS SCH ×3 (06:34→17:20)
--- NOTE | 2019-10-17 07:15 | NUR ---
BEDSIDE REPORT GIVEN TO AM RN. PT IS STABLE, RESTING IN BED.
[2019-10-17 07:16] LABS: BASOPHILS % (AUTO) 0.3 % (0.0-2.0); EOSINOPHILS % (AUTO) 0.5 % (0.0-4.0); HEMATOCRIT 24.3 % (36-48); HEMOGLOBIN 8.5 g/dL (12.0-16.0); LYMPHOCYTES % (AUTO) 17.7 % (20.5-51.1); MEAN CORPUSCULAR HEMOGLOBIN 28 pg (27-31); MEAN CORPUSCULAR HGB CONC 35 g/dL (33-37); MEAN CORPUSCULAR VOLUME 79.7 fL (80-94); MONOCYTES # (AUTO) 0.4 K/uL (0.8-1.0); MONOCYTES % (AUTO) 6.7 % (1.7-9.3); NEUTROPHILS # (AUTO) 4.4 K/uL (1.8-7.7); NEUTROPHILS % (AUTO) 74.8 % (42.2-75.2); PLATELET COUNT (AUTO) 244 K/uL (140-450); RED BLOOD CELL COUNT(AUTO) 3.05 MIL/uL (4.20-5.40); RED CELL DISTRIBUTION WIDTH 12.7 % (11.6-13.7); WHITE BLOOD COUNT (AUTO) 5.8 K/uL (4.8-10.8)
--- NOTE | 2019-10-17 07:25 | NUR ---
RECEIVED PATIENT FROM NIGHT NURSE. PATIENT IS IN BED, AWAKE AND ALERT. RESP EVEN AND UNLABORED ON ROOM AIR. PATIENT DENIES OF PAIN AT THIS TIME. PLAN OF CARE DISCUSSED WITH PATIENT. PATIENT VERBALIZED UNDERSTANDING. ENCOURAGE PATIENT TO CONSUME MORE OF HER MEALS TO MAINTAIN HER BLOOD SUGAR. PATIENT VERBALIZED UNDERSTANDING. SAFETY MEASURES IN PLACE. CALL LIGHT WITHIN REACH. WILL CONTINUE TO MONITOR.
[2019-10-17 07:42] LABS: ALBUMIN 0.9 g/dL (3.4-5.0); ANION GAP 13.2 (8-16); CARBON DIOXIDE 26.1 mmol/L (21-32); CREATININE 2.2 mg/dL (0.6-1.3); POTASSIUM 3.3 mmol/L (3.5-5.1); TOTAL BILIRUBIN 0.2 mg/dL (0.0-1.0)
[2019-10-17 08:00] VITALS: BP 137/66
[2019-10-17] MEDS ORDERED: POTASSIUM CHLORIDE 10 MEQ TABER PO SCH (09:00)
[2019-10-17] MEDS: CLONIDINE HYDROCHLORIDE 0.1 MG TAB PO SCH (09:00)
[2019-10-17] MEDS: MULTIVITAMIN 1 TAB PO SCH (09:25)
[2019-10-17] MEDS: ISOSORBIDE DINITRATE 10 MG TAB PO SCH ×3 (09:26→17:20)
[2019-10-17] MEDS: ASPIRIN 81 MG TAB.CHEW PO SCH (09:26)
[2019-10-17] MEDS: lisinopriL 20 MG TAB PO SCH (09:27)
[2019-10-17] MEDS: LABETALOL 200 MG TAB PO SCH (09:27)
[2019-10-17] MEDS: amLODIPine 5 MG TAB PO SCH (09:27)
--- NOTE | 2019-10-17 09:35 | NUR ---
MORNING ROUTINE MEDICATIONS GIVEN ORDERED. CATAPRES HOLD AT THIS TIME. RESP EVEN AND UNLABORED ON ROOM AIR. PATIENT AMBULATED WITH STEADY GAIT TO THE BATHROOM. LINENS CHANGED AND MORNING CARE PROVIDED. LAC IV IS INTACT AND PATENT. DENIES OF PAIN AT THIS TIME. SAFETY MEASURES IN PLACE. CALL LIGHT WITHIN REACH. WILL CONTINUE TO MONITOR.
[2019-10-17 10:07] LABS: MAGNESIUM 1.7 mg/dL (1.8-2.4); PHOSPHORUS 4.3 mg/dL (2.5-4.9)
[2019-10-17 12:00] VITALS: BP 134/74
[2019-10-17] MEDS ORDERED: MAG SULF 2000 MG/WATER PREMIX 50 ML IV ONE (12:00)
--- NOTE | 2019-10-17 12:50 | NUR ---
GLUCOSE CHECK 122. NO INSULIN COVERAGE. MAG RIDER STARTED. VITALS WNL. RESP EVEN AND UNLABORED. DENIES OF PAIN AT THIS TIME. ABLE TO MAKE NEEDS KNOWN. CALL LIGHT WITHIN REACH. WILL CONTINUE TO MONITOR.
--- NOTE | 2019-10-17 14:15 | NUR ---
NUCLEAR MEDICINE INFORMED STAFF OF PATIENTS HIDA SCAN OF GB WILL BE APPROX 1630 TO 1700. PATIENT INFORMED AND VERBALIZED UNDERSTANDING. PATIENT BEEN NPO SINCE BREAKFAST.
--- NOTE | 2019-10-17 14:23 | NUR ---
DR ANDRES IS AT PATIENT BEDSIDE. PATIENT DENIES OF ANY ABD PAIN, OR N/V. DR ANDRES GAVE ORDER TO D/C HIDA SCAN AND PATIENT CAN FOLLOW UP WITH HIM FOR SURGERY R/T CHOLELITHIASIS AN OUTPATIENT. PATIENT VERBALIZED UNDERSTANDING.
[2019-10-17 16:00] VITALS: BP 145/83
[2019-10-17 16:40] VITALS: BP 145/83
--- NOTE | 2019-10-17 18:25 | NUR ---
PATIENT DISCHARGED HOME. PATIENT LEFT VIA WHEELCHAIR WITH ALL PERSONAL BELONGINGS. PATIENT LEFT VIA PRIVATE VEHICLE WITH DAUGHTER. PATIENT LEFT IN STABLE CONDITION.
--- NOTE | 2019-10-18 08:19 | NUR ---
WOUND CONSULT NOT DONE. PT. DISCHARGED AND PT. SEEN BY PODIATRY ON 10/16/2019.
== END 2019-10-17 17:25 | disposition home or self-care (01) | DRG 361 ==
LOC: MED 17:40 → MTU 20:11
PROVIDERS: ADMIT Internal Medicine; ATTEND Internal Medicine
PROC: 0HBMXZZ Excision of Right Foot Skin, External Approach (ICD-10-PCS; principal; 2019-10-16)
DX: E11.621 Type 2 diabetes mellitus with foot ulcer (principal); L03.115 Cellulitis of right lower limb; L97.519 Non-pressure chronic ulcer of other part of right foot with unspecified severity; E11.40 Type 2 diabetes mellitus with diabetic neuropathy, unspecified; Z86.73 Personal history of transient ischemic attack (TIA), and cerebral infarction without residual deficits; I10 Essential (primary) hypertension; I16.0 Hypertensive urgency; K80.20 Calculus of gallbladder without cholecystitis without obstruction; E44.0 Moderate protein-calorie malnutrition; N18.3 Chronic kidney disease, stage 3 (moderate); R65.10 Systemic inflammatory response syndrome (SIRS) of non-infectious origin without acute organ dysfunction
CPT/HCPCS: 36415; 73630; 76700; 80048; 80053; 80202; 82948; 83036; 83540; 83605; 83735; 84100; 85025; 85045; 85610; 85651; 85730; 86140; 87040; 87081; 93971; 96365; 96367; 96375; 99285; J0295; J0360; J0696; J1815; J2405; J3370; J3475; J3480; J7030; J7060; Q0092

== ENCOUNTER 2020-02-22 18:08 | Observation (INO) | payer OTHER ==
[~2020-02-22] VITALS: Ht 157.5 cm; Wt 68.0 kg
[~2020-02-22 18:08] MED LIST changes: -FURO-570 PO; -HYDR-1100 PO; -TRA200 PO
[2020-02-22 18:35] VITALS: BP 167/87
--- NOTE | 2020-02-22 18:44 | NUR ---
AYLIN. HANDED ON URINE CUP.
--- NOTE | 2020-02-22 18:45 | NUR ---
C/O GENERALIZED WEAKNESS X 6 DAYS. BLOOD SUGAR 198 AT THIS TIME. PMH: DM, HTN, C SECTIONS, HYSTERECTOMY, ABDOMINAL HERNIA SURGERY.
[2020-02-22 20:16] LABS: BASOPHILS # (AUTO) 0.1 K/uL (0.00-0.22); BASOPHILS % (AUTO) 0.9 % (0.0-2.0); EOSINOPHILS # (AUTO) 0.1 K/uL (0-0.4); EOSINOPHILS % (AUTO) 1.1 % (0.0-4.0); HEMATOCRIT 35.2 % (36-48); HEMOGLOBIN 11.9 g/dL (12.0-16.0); LYMPHOCYTES # (AUTO) 2.3 K/uL (2.5-16.5); LYMPHOCYTES % (AUTO) 31.2 % (20.5-51.1); MEAN CORPUSCULAR HEMOGLOBIN 27 pg (27-31); MEAN CORPUSCULAR HGB CONC 34 g/dL (33-37); MEAN CORPUSCULAR VOLUME 79.5 fL (80-94); MONOCYTES # (AUTO) 0.3 K/uL (0.8-1.0); MONOCYTES % (AUTO) 4.5 % (1.7-9.3); NEUTROPHILS # (AUTO) 4.5 K/uL (1.8-7.7); NEUTROPHILS % (AUTO) 62.3 % (42.2-75.2); PLATELET COUNT (AUTO) 245 K/uL (140-450); RED BLOOD CELL COUNT(AUTO) 4.43 MIL/uL (4.20-5.40); RED CELL DISTRIBUTION WIDTH 13.9 % (11.6-13.7); WHITE BLOOD COUNT (AUTO) 7.3 K/uL (4.8-10.8)
[2020-02-22 20:32] LABS: ALBUMIN 1.3 g/dL (3.4-5.0); ANION GAP 3.8 (8-16); CARBON DIOXIDE 38.2 mmol/L (21-32); CREATININE 1.4 mg/dL (0.6-1.3); TOTAL BILIRUBIN 0.3 mg/dL (0.0-1.0)
[2020-02-22] MEDS ORDERED: POTASSIUM CHLORIDE 10 MEQ TABER PO ONE (20:45)
[2020-02-22] MEDS ORDERED: POTASSIUM CHL 20 MEQ/NACL 0.9% 1,000 ML IV ONE (20:45)
[2020-02-22 21:16] LABS: MAGNESIUM 2.3 mg/dL (1.8-2.4)
[2020-02-22] MEDS ORDERED: ACETAMINOPHEN 325 MG TAB PO PRN (22:05)
[2020-02-22] MEDS ORDERED: MAGNESIUM OXIDE 400 MG TAB PO PRN (22:05)
[2020-02-22] MEDS ORDERED: METOCLOPRAMIDE 10 MG/2 ML INJ VIAL IVP PRN (22:05)
[2020-02-22] MEDS ORDERED: INSULIN LISPRO SLIDING SCALE 100 UNITS/ML VIAL SUBQ PRN (22:10)
[2020-02-22] MEDS ORDERED: DEXTROSE 50% 50 ML SYR IVP PRN (22:10)
[2020-02-23] MEDS ORDERED: BLOOD GLUCOSE MONITORING 1 DEV DEV FS SCH (07:30)
[2020-02-23] MEDS ORDERED: DOCUSATE SODIUM 100 MG GELCAP PO SCH (09:00)
[2020-02-23] MEDS ORDERED: CLONIDINE HYDROCHLORIDE 0.1 MG TAB PO SCH (09:00)
[2020-02-23] MEDS ORDERED: ISOSORBIDE DINITRATE 10 MG TAB PO SCH (09:00)
[2020-02-23] MEDS ORDERED: amLODIPine 5 MG TAB PO SCH (09:00)
[2020-02-23] MEDS ORDERED: lisinopriL 20 MG TAB PO SCH (09:00)
[2020-02-23] MEDS ORDERED: METOPROLOL 25 MG TAB PO SCH (09:00)
[2020-02-23] MEDS ORDERED: ASPIRIN 81 MG TAB.CHEW PO SCH (09:00)
--- NOTE | 2020-02-23 14:35 | NUR ---
LATE ENTRY- UNKNOWN WHAT TIME PATIENT LEFT LAST NIGHT, ELOPED FROM FACILITY. NO DOCUMENTATION FROM CANNING MACHINE OPERATOR.
[2020-02-23] MEDS ORDERED: ATORVASTATIN 80 MG TAB PO SCH (21:00)
== END 2020-02-23 07:48 | disposition left against medical advice (07) ==
LOC: MED 18:08 → MTU 22:03
PROVIDERS: ADMIT Hospitalist; ATTEND Hospitalist
DX: E87.6 Hypokalemia (principal); R53.1 Weakness; E11.9 Type 2 diabetes mellitus without complications; I10 Essential (primary) hypertension; E87.1 Hypo-osmolality and hyponatremia; Z86.73 Personal history of transient ischemic attack (TIA), and cerebral infarction without residual deficits; Z90.710 Acquired absence of both cervix and uterus; Z79.4 Long term (current) use of insulin; Z79.82 Long term (current) use of aspirin; Z79.899 Other long term (current) drug therapy
CPT/HCPCS: 36415; 80053; 82310; 82948; 83735; 85025; 93005; 99291; 99292; G0378; J7030

== ENCOUNTER 2020-12-19 14:47 | Emergency (ER) | payer OTHER, SELFPAY ==
[~2020-12-19] VITALS: Ht 157.5 cm; Wt 63.5 kg
[~2020-12-19 14:47] MED LIST changes: -AMLO10TA PO; +CLON-1170 PO; -CLON0.2T43 PO; +FERR325E14 PO; +FURO-570 PO; +HYDR-4420 PO; -ISOS10TA9 PO; -LISI-420 PO; -METO25TA PO; +NIFE60TA39 PO; +SYN.05 PO; +TRA200 PO
[2020-12-19 15:07] VITALS: BP 147/75
--- NOTE | 2020-12-19 16:04 | NUR ---
55 Y/O F, PATIENT PRESENTS TO ED WITH R ANKLE PAIN POST FALL 3 DAYS AGO AROUND NIGHT TIME 1999. PT DENIES HEAD/NECK INJURY, SYNCOPE, AND LOC. DENIES N/V/D; SKIN IS PINK/WARM/DRY; AAOX4 UNABLE TO AMBULATE AT THIS TIME; LUNGS CLEAR BL; HR EVEN AND REGULAR; PT DENIES ANY FEVER, CP, SOB, OR COUGH AT THIS TIME; PATIENT STATES PAIN OF 8/10 AT THIS TIME; VSS; PATIENT POSITIONED FOR COMFORT; HOB ELEVATED; BEDRAILS UP X2; BED DOWN. ER MD MADE AWARE OF PT STATUS. PMH: DM2, HTN, CONGESTIVE HEART FAILURE MED: DENIES NKA
--- NOTE | 2020-12-19 18:02 | NUR ---
SPLINT WAS DONE ON R LEG LONG LEG SPLINT PER STEFAN DONOHUE. PT STATED WOULD PREFER TO BE IN WHEELCHAIR WITH LEG STRAIGHT. REFUSES CRUTCHES AT THIS TIME. WALKER WAS PLACED IN CAR, PT WAS WHEELCHAIR ASSISTED TO SISTERS CAR FOR DISCHARGE. CD AND PAPERWORK WAS GIVEN
[2020-12-19 18:04] VITALS: BP 147/75
--- NOTE | 2020-12-19 18:04 | NUR ---
Patient discharged with v/s stable. Written and verbal after care instructions given and explained. Patient verbalized understanding. Wheel Chair Assisted with SISTER to car. All questions addressed prior to discharge. Advised to follow up with PMD.
== END 2020-12-19 18:04 | disposition home or self-care (01) ==
LOC: MED 14:47
DX: S82.831A Other fracture of upper and lower end of right fibula, initial encounter for closed fracture (principal); X58.XXXA Exposure to other specified factors, initial encounter; Y93.89 Activity, other specified; Y92.89 Other specified places as the place of occurrence of the external cause; Y99.8 Other external cause status
CPT/HCPCS: 29515; 73590; 73610; 99284; Q0092